=== PATIENT | female | born 1990 | race Caucasian/White ===

== ENCOUNTER 2020-08-03 18:52 | Inpatient (IN) | payer BC ==
[2020-08-03] MEDS ORDERED: Lidocaine 1% 50 ML MDV INJECT PRN (19:58)
[2020-08-03] MEDS ORDERED: Misoprostol 200 MCG Tab PO PRN (19:58)
[2020-08-03] MEDS ORDERED: Ondansetron 4 MG/2 ML SDV IVPUSH PRN (19:58)
[2020-08-03] MEDS ORDERED: Butorphanol 1 MG/ML SDV IVPUSH PRN (19:58)
[2020-08-03] MEDS ORDERED: Carboprost Tromethamine 250 MCG/1 ML Amp IM PRN (19:58)
[2020-08-03] MEDS ORDERED: Nalbuphine 10 MG/1 ML Vial IVPUSH PRN (19:58)
[2020-08-03] MEDS ORDERED: Sodium Chloride 0.9% 10 ML Syringe FLUSH PRN (19:58)
[2020-08-03] MEDS ORDERED: Tranexamic Acid 1,000 MG in Sodium Chloride 0.9% 100 ML IV PRN (19:58)
[2020-08-03] MEDS ORDERED: Sodium Chloride 0.9% 2.5 ML Syringe FLUSH PRN (19:58)
[2020-08-03] MEDS ORDERED: Water For Irrigation,Sterile 1,000 ML Container IRR PRN (19:58)
[2020-08-03] MEDS ORDERED: Sodium Chloride 0.9% 10 ML SDV IV PRN (19:58)
[2020-08-03] MEDS ORDERED: Methylergonovine 0.2 MG/1 ML Amp IM PRN (19:58)
[2020-08-03] MEDS ORDERED: Oxytocin/0.9 % Sodium Chloride 30 UNIT/500 ML BAG IV SCH ×2 (20:00→20:30)
[2020-08-03] MEDS ORDERED: Terbutaline 1 MG/ML SDV SUBCUT PRN (20:16)
--- NOTE | 2020-08-03 20:43 | PCM.LDHP ---
L&D History of Present Illness - General Date of Service: 08/03/20 Admit Problem/Dx: Patient Status Order with Admit Dx/Problem 08/03/20 19:58 Patient Status [ADT] Routine Admission Diagnosis/Problem Admission Diagnosis/Problem Source of Information: Patient History Limitations: Reports: No Limitations - History of Present Illness Introduction:: 30 year old G1 female at 40w0d (EDC 08/03/2020 by LMP c/w 1st trimester US) presents for IOL due to maternal obesity and lives remote from facility. complicated by maternal obesity. Failed 1hr DMS, however, passed 3hr gTT. Reports good movement today. Denies leaking fluid, vaginal bleeding or contractions. Estimated weight 4090 grams by ultrasound on 07/26/2020. - Related Data Allergies/Adverse Reactions: Allergies Allergy/AdvReac Type Severity Reaction Status Date / Time promethazine [From Phenergan] Allergy Muscle Verified 08/03/20 20:31 Weakness H&P Review of Systems - Review of Systems: Review Of Systems: See Below General: Reports: No Symptoms HEENT: Reports: No Symptoms Pulmonary: Reports: No Symptoms Cardiovascular: Reports: No Symptoms Gastrointestinal: Reports: No Symptoms Genitourinary: Reports: No Symptoms Musculoskeletal: Reports: No Symptoms Skin: Reports: No Symptoms Psychiatric: Reports: No Symptoms Neurological: Reports: No Symptoms Hematologic/Lymphatic: Reports: No Symptoms Immunologic: Reports: No Symptoms L&D Exam - Exam Exam: See Below - OB Specific Contraction Frequency (min): q6-8 minutes Contraction Intensity: Mild to Moderate Movement: Active Heart Tones: Present Heart Tones per Min: 130 (accelerations noted) Heart Rate (FHR) Variability: Moderate (6-25 bmp) Presentation: Vertex Estimated Weight: 4090 grams by ultrasound on 07/26/2020 - Espana Score Espana Score Cervix Position: Posterior Espana Score Consistency: Firm Espana Score Effacement: 31-50% Espana Score Dilation: 1-2 cm Espana Score Infant's Station: -3 Espana Score Total: 2 - Exam General: Alert Lungs: Normal Respiratory Effort Cardiovascular: Regular Rate GI/Abdominal Exam: Soft, Non-Tender Back Exam: Normal Inspection, Full Range of Motion Extremities: Normal Inspection, Normal Range of Motion, Non-Tender, Pedal Edema (Trace) Skin: Warm, Dry, Intact Psychiatric: Normal Mood Problem List Initiated/Reviewed/Updated: Yes Orders Last 24hrs: Active Orders 24 hr Category Date Time Status Patient Status [ADT] Routine ADT 08/03/20 19:58 Active Bedrest Bathroom Privileges [RC] ASDIRECTED Care 08/03/20 20:17 Active Communication Order [RC] ASDIRECTED Care 08/03/20 20:17 Active Communication Order [RC] ASDIRECTED Care 08/03/20 20:17 Active Communication Order [RC] ASDIRECTED Care 08/03/20 20:17 Active Heart Tones [RC] CONTINUOUS Care 08/03/20 19:58 Active Non Stress Test [RC] PER UNIT ROUTINE Care 08/03/20 19:58 Active May Shower [RC] ASDIRECTED Care 08/03/20 19:58 Active Notify Provider [RC] PRN Care 08/03/20 19:58 Active Notify Provider [RC] PRN Care 08/03/20 20:17 Active Notify Provider [RC] PRN Care 08/03/20 20:17 Active Notify Provider [RC] STAT Care 08/03/20 20:17 Active Oxygen Therapy [RC] ASDIRECTED Care 08/03/20 20:17 Active Up ad Sandi [RC] ASDIRECTED Care 08/03/20 19:58 Active Vaginal Exam [RC] PRN Care 08/03/20 19:58 Active Vaginal Exam [RC] PRN Care 08/03/20 20:17 Active Vital Signs [RC] PER UNIT ROUTINE Care 08/03/20 19:58 Active Vital Signs [RC] PER UNIT ROUTINE Care 08/03/20 20:17 Active Clear Liquid Diet [DIET] Diet 08/03/20 Dinner Active CBC W/O DIFF,HEMOGRAM [HEME] Routine Lab 08/03/20 19:58 Ordered CORONAVIRUS COVID-19 JACK [MOLEC] Routine Lab 08/03/20 19:55 Received RPR (SYPHILIS SERO) W/ RFLX [REF] Routine Lab 08/03/20 19:58 Ordered TYPE AND SCREEN [BBK] Routine Lab 08/03/20 19:58 Ordered Ampicillin 2 gm Med 08/03/20 19:58 Ordered Sodium Chloride 0.9% [Normal Saline] 100 ml IV ONETIME Butorphanol [Stadol] Med 08/03/20 19:58 Ordered 1 mg IVPUSH Q1H PRN Carboprost Tromethamine [Hemabate DS] Med 08/03/20 19:58 Ordered 250 mcg IM ASDIRECTED PRN Lactated Ringers [Ringers, Lactated] 1,000 ml Med 08/03/20 20:00 Ordered IV ASDIRECTED Lidocaine 1% [Xylocaine 1%] Med 08/03/20 19:58 Ordered 50 ml INJECT ONETIME PRN Methylergonovine [Methergine] Med 08/03/20 19:58 Ordered 0.2 mg IM ASDIRECTED PRN Nalbuphine [Nubain] Med 08/03/20 19:58 Ordered 10 mg IVPUSH Q1H PRN Ondansetron [Zofran] Med 08/03/20 19:58 Ordered 4 mg IVPUSH Q6H PRN Oxytocin/0.9 % Sodium Chloride [Oxytocin 30 Unit/500 ML Med 08/03/20 20:00 Ordered -NS] 30 unit in 500 ml IV TITRATE Oxytocin/0.9 % Sodium Chloride [Oxytocin 30 Unit/500 ML Med 08/03/20 20:30 Ord ered -NS] 30 unit in 500 ml IV TITRATE Sodium Chloride 0.9% [Normal Saline] Med 08/03/20 19:58 Ordered 10 ml IV ASDIRECTED PRN Sodium Chloride 0.9% [Saline Flush] Med 08/03/20 19:58 Ordered 10 ml FLUSH ASDIRECTED PRN Sodium Chloride 0.9% [Saline Flush] Med 08/03/20 19:58 Ordered 2.5 ml FLUSH ASDIRECTED PRN Terbutaline [Brethine] Med 08/03/20 20:16 Ordered 0.25 mg SUBCUT ASDIRECTED PRN Tranexamic Acid [Cyklokapron] 1,000 mg Med 08/03/20 19:58 Ordered Sodium Chloride 0.9% [Normal Saline] 100 ml IV ONETIME Water For Irrigation,Sterile [Sterile Water for Med 08/03/20 19:58 Ordered Irrigation] 1,000 ml IRR ASDIRECTED PRN miSOPROStoL [Cytotec] Med 08/03/20 19:58 Ordered 200 mcg PO ONETIME PRN miSOPROStoL [Cytotec] Med 08/03/20 20:16 Ordered 25 mcg VAG Q4H PRN Scalp Electrode [WOMSER] Per Unit Routine Oth 08/03/20 19:58 Ordered Medication Administration Instruction [OM.PC] Q3H Oth 08/03/20 20:30 Ordered Peripheral IV Insertion Adult [OM.PC] Routine Oth 08/03/20 19:58 Ordered Resuscitation Status Routine Resus Stat 08/03/20 19:58 Ordered Medication Orders Butorphanol Tartrate (Butorphanol 1 Mg/Ml Sdv) 1 mg IVPUSH Q1H PRN PRN Reason: Pain Carboprost Tromethamine (Carboprost Tromethamine 250 Mcg/1 Ml Amp) 250 mcg IM ASDIRECTED PRN PRN Reason: Post Hemorrhage Oxytocin/Sodium Chloride (Oxytocin 30 Unit/500 Ml-Ns) 30 unit in 500 mls @ 999 mls/hr IV TITRATE MARLIN Tranexamic Acid 1,000 mg/ (Sodium Chloride) 110 mls @ 660 mls/hr IV ONETIME PRN PRN Reason: Bleeding Ampicillin Sodium 2 gm/ Sodium (Chloride) 100 mls @ 200 mls/hr IV ONETIME ONE Stop: 08/03/20 20:27 Lactated Ringer's (Ringers, Lactated) 1,000 mls @ 150 mls/hr IV ASDIRECTED MARLIN Oxytocin/Sodium Chloride (Oxytocin 30 Unit/500 Ml-Ns) 30 unit in 500 mls @ 2 mls/hr IV TITRATE MARLIN; Protocol Lidocaine HCl (Lidocaine 1% 50 Ml Mdv) 50 ml INJECT ONETIME PRN PRN Reason: Laceration repair Methylergonovine Maleate (Methylergonovine 0.2 Mg/1 Ml Amp) 0.2 mg IM ASDIRECTED PRN PRN Reason: Post Hemorrhage Misoprostol (Misoprostol 200 Mcg Tab) 200 mcg PO ONETIME PRN PRN Reason: Post Hemorrhage Misoprostol (Misoprostol 25 Mcg (1/4 Of 100 Mcg) Tab) 25 mcg VAG Q4H PRN PRN Reason: Cervical Ripening Nalbuphine HCl (Nalbuphine 10 Mg/1 Ml Vial) 10 mg IVPUSH Q1H PRN PRN Reason: Pain (severe 7-10) Ondansetron HCl (Ondansetron 4 Mg/2 Ml Sdv) 4 mg IVPUSH Q6H PRN PRN Reason: Nausea/Vomiting Sodium Chloride (Sodium Chloride 0.9% 10 Ml Syringe) 10 ml FLUSH ASDIRECTED PRN PRN Reason: Keep Vein Open Sodium Chloride (Sodium Chloride 0.9% 2.5 Ml Syringe) 2.5 ml FLUSH ASDIRECTED PRN PRN Reason: Keep Vein Open Sodium Chloride (Sodium Chloride 0.9% 10 Ml Sdv) 10 ml IV ASDIRECTED PRN PRN Reason: IV Use Sterile Water (Water For Irrigation,Sterile 1,000 Ml Container) 1,000 ml IRR ASDIRECTED PRN PRN Reason: delivery Terbutaline Sulfate (Terbutaline 1 Mg/Ml Sdv) 0.25 mg SUBCUT ASDIRECTED PRN PRN Reason: Tacysystole Assessment/Plan Comment:: 30 year old G1 female at 40w0d (EDC 08/03/2020 by LMP c/w 1st trimester US) for IOL due to maternal obesity and lives remote from facility * Rh positive, rubella immune * GBS positive, IV Ampicillin during labor * COVID-19 test pending * Reviewed risks of Cyototec/Pitocin induction including Cytotec as category X medication in , tachysystole with distress and need for section. Questions elicited and answered. * Will place vaginal Cytotec pending CVE and proceed with Pitocin after cervical ripening * Epidural PRN pain management
[2020-08-03] MEDS ORDERED: Ampicillin 2 GM in Sodium Chloride 0.9% 100 ML IV ONE (21:00)
[2020-08-03] MEDS: Misoprostol 25 MCG (1/4 of 100 MCG) Tab VAG PRN (21:10)
[2020-08-03] MEDS: Lactated Ringers 1,000 ML IV SCH (21:28)
[2020-08-04] MEDS: Misoprostol 25 MCG (1/4 of 100 MCG) Tab VAG PRN ×2 (01:07→05:20)
[2020-08-04] MEDS: Ampicillin 1 GM in Sodium Chloride 0.9% 50 ML IV SCH ×6 (01:26→21:22)
[2020-08-04] MEDS: Lactated Ringers 1,000 ML IV SCH ×4 (13:57→23:01)
[2020-08-04] MEDS ORDERED: Ropivacaine HCl/PF 100 ML ONE (16:17)
[2020-08-04] MEDS ORDERED: fentaNYL 100 MCG/2 ML SDV ONE (16:17)
--- NOTE | 2020-08-04 16:34 | PCM.PREANE ---
Preanesthetic Assessment - Anesthesia/Transfusion/Family Hx Anesthesia History: Prior Anesthesia Without Reaction Family History of Anesthesia Reaction: No Transfusion History: No Prior Transfusion(s) Type of Transfusion Reactions: Reports: Unknown - Physical Assessment NPO Status Date: 08/04/20 NPO Status Time: 10:00 Height: 1.7 m Weight: 108.862 kg ASA Class: 2 - Lab Values: Laboratory Last Values WBC 11.33 K/uL (4.0-11.0) H 08/03/20 20: RBC 3.60 M/uL (4.30-5.90) L 08/03/20 20: Hgb 12.0 g/dL (12.0-16.0) 08/03/20 20: Hct 34.7 % (36.0-46.0) L 08/03/20 20: MCV 96.4 fL (80.0-98.0) 08/03/20 20: MCH 33.3 pg (27.0-32.0) H 08/03/20 20: MCHC 34.6 g/dL (31.0-37.0) 08/03/20 20: RDW Std Deviation 43.2 fl (28.0-62.0) 08/03/20 20: RDW Coeff of Coy 12 % (11.0-15.0) 08/03/20 20: Plt Count 225 K/uL (150-400) 08/03/20 20: MPV 10.50 fL (7.40-12.00) 08/03/20 20: Nucleated RBC % 0.0 /100WBC 08/03/20 20: Nucleated RBCs # 0 K/uL 08/03/20 20:27 SARS-CoV-2 RNA (JACK) NEGATIVE (NEGATIVE) 08/03/20 19:55 Blood Type A POSITIVE 08/03/20 20: Antibody Screen NEGATIVE 08/03/20 20:27 - Allergies Allergies/Adverse Reactions: Allergies Allergy/AdvReac Type Severity Reaction Status Date / Time metoclopramide [From Reglan] Allergy Weakness Verified 08/03/20 20:37 prochlorperazine Allergy Muscle Verified 08/03/20 20:37 [From Compazine] Weakness promethazine [From Phenergan] Allergy Muscle Verified 08/03/20 20:31 Weakness - Acknowledgements Anesthesia Type Planned: Epidural Pt an Appropriate Candidate for the Planned Anesthesia: Yes Alternatives and Risks of Anesthesia Discussed w Pt/Guardian: Yes Pt/Guardian Understands and Agrees with Anesthesia Plan: Yes PreAnesthesia Questionnaire HEENT History: Reports: None Cardiovascular History: Reports: None Gastrointestinal History: Reports: None Genitourinary History: Reports: None HOUSEHOLD ASSISTANT History: Reports: Musculoskeletal History: Reports: None Neurological History: Reports: None Psychiatric History: Reports: None Endocrine/Metabolic History: Reports: None Hematologic History: Reports: None Immunologic History: Reports: None Oncologic (Cancer) History: Reports: None Dermatologic History: Reports: None - Infectious Disease History Infectious Disease History: Reports: Chicken Pox - Past Surgical History Head Surgeries/Procedures: Reports: None HEENT Surgical History: Reports: None Cardiovascular Surgical History: Reports: None Respiratory Surgical History: Reports: None GI Surgical History: Reports: None Female Surgical History: Reports: None Endocrine Surgical History: Reports: None Neurological Surgical History: Reports: None Musculoskeletal Surgical History: Reports: None Oncologic Surgical History: Reports: None Dermatological Surgical History: Reports: None - SUBSTANCE USE Tobacco Use Status *Q: Never Tobacco User Second Hand Smoke Exposure: No Recreational Drug Use History: No - CURRENT (IN HOUSE) MEDS Current Meds: Current Medications Butorphanol Tartrate (Butorphanol 1 Mg/Ml Sdv) 1 mg IVPUSH Q1H PRN PRN Reason: Pain Carboprost Tromethamine (Carboprost Tromethamine 250 Mcg/1 Ml Amp) 250 mcg IM ASDIRECTED PRN PRN Reason: Post Hemorrhage Oxytocin/Sodium Chloride (Oxytocin 30 Unit/500 Ml-Ns) 30 unit in 500 mls @ 999 mls/hr IV TITRATE MARLIN Tranexamic Acid 1,000 mg/ (Sodium Chloride) 110 mls @ 660 mls/hr IV ONETIME PRN PRN Reason: Bleeding Lactated Ringer's (Ringers, Lactated) 1,000 mls @ 150 mls/hr IV ASDIRECTED MARLIN Last Admin: 08/04/20 13:57 Dose: 150 mls/hr Documented by: Oxytocin/Sodium Chloride (Oxytocin 30 Unit/500 Ml-Ns) 30 unit in 500 mls @ 2 mls/hr IV TITRATE MARLIN; Protocol Last Titration: 08/04/20 13:58 Dose: 12 munits/min, 12 mls/hr Documented by: Ampicillin Sodium 1 gm/ Sodium (Chloride) 50 mls @ 100 mls/hr IV Q4H MARLIN Last Admin: 08/04/20 13:30 Dose: 100 mls/hr Documented by: Lidocaine HCl (Lidocaine 1% 50 Ml Mdv) 50 ml INJECT ONETIME PRN PRN Reason: Laceration repair Methylergonovine Maleate (Methylergonovine 0.2 Mg/1 Ml Amp) 0.2 mg IM ASDIRECTED PRN PRN Reason: Post Hemorrhage Misoprostol (Misoprostol 200 Mcg Tab) 200 mcg PO ONETIME PRN PRN Reason: Post Hemorrhage Misoprostol (Misoprostol 25 Mcg (1/4 Of 100 Mcg) Tab) 25 mcg VAG Q4H PRN PRN Reason: Cervical Ripening Last Admin: 08/04/20 05:20 Dose: 25 mcg Documented by: Nalbuphine HCl (Nalbuphine 10 Mg/1 Ml Vial) 10 mg IVPUSH Q1H PRN PRN Reason: Pain (severe 7-10) Ondansetron HCl (Ondansetron 4 Mg/2 Ml Sdv) 4 mg IVPUSH Q6H PRN PRN Reason: Nausea/Vomiting Sodium Chloride (Sodium Chloride 0.9% 10 Ml Syringe) 10 ml FLUSH ASDIRECTED PRN PRN Reason: Keep Vein Open Sodium Chloride (Sodium Chloride 0.9% 2.5 Ml Syringe) 2.5 ml FLUSH ASDIRECTED PRN PRN Reason: Keep Vein Open Sodium Chloride (Sodium Chloride 0.9% 10 Ml Sdv) 10 ml IV ASDIRECTED PRN PRN Reason: IV Use Sterile Water (Water For Irrigation,Sterile 1,000 Ml Container) 1,000 ml IRR ASDIRECTED PRN PRN Reason: delivery Terbutaline Sulfate (Terbutaline 1 Mg/Ml Sdv) 0.25 mg SUBCUT ASDIRECTED PRN PRN Reason: Tacysystole Discontinued Medications Fentanyl (Fentanyl 100 Mcg/2 Ml Sdv) Confirm Administered Dose 100 mcg .ROUTE .STK-MED ONE Stop: 08/04/20 16:18 Ampicillin Sodium 2 gm/ Sodium (Chloride) 100 mls @ 200 mls/hr IV ONETIME ONE Stop: 08/03/20 21:29 Last Admin: 08/03/20 21:27 Dose: 200 mls/hr Documented by: Ampicillin Sodium 1 gm/ Sodium (Chloride) 50 mls @ 100 mls/hr IV Q4H MARLIN Last Admin: 08/04/20 05:20 Dose: 100 mls/hr Documented by: Ropivacaine (Naropin 0.2%) Confirm Administered Dose 100 mls @ as directed .ROUTE .[facility]-MED ONE Stop: 08/04/20 16:18
--- NOTE | 2020-08-04 16:37 | PCM.PRNOTE ---
- Free Text/Narrative Note: Anes Note Patient requests epidural for L&D. Sitting position. Level L3-L4 midline appraoch. Sterile technique. Chloraprep scrub to lumbar area. Sterile fenestrated drape applied. Epidural space easily achieved single attempt with ease using RADHA technique. RADHA at 3 cm. Cath threaded 5 cm wtih ease. Cath secured at skin using sterile clear adhesive dressing. Test 1625 3 cc 1.5% lido with epi negative 1628 Load 10 cc 0.2% ropivicaine with 1 mcg cc fentanyl in slow divided doses. 1634 Pump started wityh 90 cc same solution. Rate is 8 cc hr with 6 cc q 20 min prn bolus. Kari well. Time with patient [id number] Gucci Rodriguez CRNA
[2020-08-05] MEDS ORDERED: fentaNYL 100 MCG/2 ML SDV ONE ×4 (01:14→07:08)
[2020-08-05] MEDS ORDERED: Ropivacaine HCl/PF 100 ML ONE (01:14)
--- NOTE | 2020-08-05 01:27 | PCM.PRNOTE ---
- Free Text/Narrative Note: Anes Note Epidural infusion is complete. A new bag of 100 cc 0.2%ropiviciane with 1 mcg cc fentanyl was placed. A bolus of 100 mcg fentanyl plus 10 cc pump solution was injected slowly and cautiously. Time [facility] patient [id number] Gucci Rodriguez CRNA
[2020-08-05] MEDS: Ampicillin 1 GM in Sodium Chloride 0.9% 50 ML IV SCH ×3 (01:36→09:46)
[2020-08-05] MEDS ORDERED: Citric Acid/Sodium Citrate Solution 30 ML Cup PO ONE (06:19)
[2020-08-05] MEDS ORDERED: Sodium Chloride 0.9% 2.5 ML Syringe FLUSH PRN (06:19)
[2020-08-05] MEDS ORDERED: Sodium Chloride 0.9% 10 ML SDV IV PRN (06:19)
[2020-08-05] MEDS ORDERED: Sodium Chloride 0.9% 10 ML Syringe FLUSH PRN (06:19)
[2020-08-05] MEDS ORDERED: ceFAZolin 2 GM in Premix Bag 1 BAG IV ONE (06:19)
[2020-08-05] MEDS ORDERED: Lidocaine 2% with EPINEPHrine 1:200,000 20 ML SDV ONE (06:26)
[2020-08-05] MEDS ORDERED: Oxytocin/0.9 % Sodium Chloride 30 UNIT/500 ML BAG IV SCH (06:30)
[2020-08-05] MEDS ORDERED: Lactated Ringers 1,000 ML IV SCH (06:30)
[2020-08-05] MEDS ORDERED: Oxytocin 10 Units/1 ML SDV ONE (06:35)
[2020-08-05] MEDS ORDERED: Phenylephrine 1% 10 MG/ML SDV ONE (06:35)
[2020-08-05] MEDS ORDERED: Ondansetron 4 MG/2 ML SDV ONE (06:35)
[2020-08-05] MEDS ORDERED: Ketorolac 30 MG/ML SDV ONE (06:35)
[2020-08-05] MEDS ORDERED: Morphine PF 10 MG/10 ML SDV ONE (06:37)
[2020-08-05] MEDS ORDERED: ceFAZolin 1 GM Vial ONE (06:38)
[2020-08-05] MEDS ORDERED: Sodium Chloride 0.9% 20 ML ONE (06:38)
[2020-08-05] MEDS ORDERED: Bupivacaine 0.5% 30 ML SDV ONE (06:59)
[2020-08-05] MEDS ORDERED: Propofol 200 MG/20 ML SDV ONE (07:03)
[2020-08-05] MEDS ORDERED: Acetaminophen/oxyCODONE 325-5 MG Tab PO PRN (07:16)
[2020-08-05] MEDS ORDERED: Nalbuphine 10 MG/1 ML Vial IVPUSH PRN (07:16)
[2020-08-05] MEDS ORDERED: Naloxone 0.4 MG/ML Syringe IVPUSH PRN (07:16)
[2020-08-05] MEDS ORDERED: fentaNYL 100 MCG/2 ML SDV IVPUSH PRN (07:16)
[2020-08-05] MEDS ORDERED: Ondansetron 4 MG/2 ML SDV IVPUSH PRN ×2 (07:16→08:17)
[2020-08-05] MEDS ORDERED: diphenhydrAMINE 50 MG/ML SDV IVPUSH PRN ×2 (07:16→08:17)
[2020-08-05] MEDS ORDERED: Misoprostol 200 MCG Tab ONE (07:24)
[2020-08-05] MEDS ORDERED: Midazolam 1 MG/ML 2 ML SDV ONE (07:41)
[2020-08-05] MEDS ORDERED: Methylergonovine 0.2 MG/1 ML Amp IM PRN (08:17)
[2020-08-05] MEDS ORDERED: Tranexamic Acid 1,000 MG in Sodium Chloride 0.9% 100 ML IV PRN (08:17)
[2020-08-05] MEDS ORDERED: Bisacodyl 10 MG Supp RECTAL PRN (08:17)
[2020-08-05] MEDS ORDERED: Lanolin 100% Cream 7 GM Tube TOP PRN (08:17)
[2020-08-05] MEDS ORDERED: Oxytocin 10 Units/1 ML SDV IM PRN (08:17)
[2020-08-05] MEDS ORDERED: Misoprostol 200 MCG Tab RECTAL PRN (08:17)
--- NOTE | 2020-08-05 08:17 | PCM.OPNOTE ---
<Carole Acevedo - Last Filed: 08/05/20 08:12> - General Post-Op/Procedure Note Date of Surgery/Procedure: 08/05/20 Operative Procedure(s): low transverse section Pre Op Diagnosis: 40w0d intrauterine , failure to progress Post-Op Diagnosis: same as pre-op Anesthesia Technique: Epidural Primary Surgeon: Marleny Trevino Anesthesia Provider: Elie Tillman Construction Administrator: Carole Acevedo Pathology: none Fluid Replacement, Intraop: 1,200 Output, Urine Amount: 200 EBL in mLs: 800 Condition: Stable Free Text/Narrative:: Intake & Output 08/04/20 08/05/20 08/05/20 22:59 06:59 14:59 Intake Total 212 Balance 212 <Marleny Trevino - Last Filed: 08/06/20 10:58> - General Post-Op/Procedure Note Findings: Normal appearing male in cephalic presentation, occiput posterior. Nuchal chord x1, loose. Weight 9lbs 3oz. APGARs 8/9. Clear amniotic fluid. Normal appearing uterus, fallopian tubes and ovaries. Pre Op Diagnosis: correction: 1. 40w2d intrauterine gestation. 2. Failure to descend in second stage. 3. GBS positive. 4. Maternal obesity Post-Op Diagnosis: Correction: 1. 40w2d intrauterine gestation. 2. Failure to descend in second stage. 3. GBS positive. 4. Maternal obesity. 5. Uterine atony Complications: Uterine atony Free Text/Narrative:: Intake & Output 08/05/20 08/06/20 08/06/20 22:59 06:59 14:59 Intake Total 2401 Output Total 2450 Balance -49 Dictation #[id number]
[2020-08-05] MEDS ORDERED: Oxytocin/Lactated Ringers 30 UNIT/500 ML BAG IV SCH (08:30)
--- NOTE | 2020-08-05 08:54 | PCM.POSTAN ---
POST ANESTHESIA ASSESSMENT - MENTAL STATUS Mental Status: Alert - RESPIRATORY Respiratory Status: Respiratory Rate WNL - CARDIOVASCULAR CV Status: Pulse Rate WNL - GASTROINTESTINAL GI Status: No Symptoms - POST OP HYDRATION Hydration Status: Adequate & Stable
[2020-08-05] MEDS: Ketorolac 30 MG/ML SDV IVPUSH SCH ×3 (09:39→20:49)
[2020-08-05] MEDS: Docusate Sodium 100 MG Cap PO SCH ×2 (10:11→20:51)
[2020-08-05] MEDS: Lactated Ringers 1,000 ML IV SCH ×2 (10:33→19:33)
--- NOTE | 2020-08-05 17:32 | PCM.SN.2 ---
- Free Text/Narrative Note: Patient doing well. Has ambulated in room without dizziness. Vital signs normal with good urine output. Check hemoglobin in the morning. Continue to monitor.
[2020-08-06] MEDS: Ketorolac 30 MG/ML SDV IVPUSH SCH ×2 (02:38→08:44)
--- NOTE | 2020-08-06 07:26 | PCM.PNPP ---
<Carole Acevedo L - Last Filed: 08/06/20 11:44> - General Info Date of Service: 08/06/20 Functional Status: Reports: Pain Controlled, Tolerating Diet, Ambulating, Other - Review of Systems General: Reports: No Symptoms Pulmonary: Reports: No Symptoms Cardiovascular: Reports: No Symptoms Gastrointestinal: Reports: No Symptoms Genitourinary: Reports: No Symptoms Musculoskeletal: Reports: No Symptoms - General Info Date of Service: 08/06/20 - Patient Data Vital Signs - Most Recent: Last Vital Signs Temp 36.2 C 08/06/20 05:00 Pulse 83 08/06/20 06:00 Resp 17 08/06/20 06:00 BP 110/52 L 08/06/20 05:00 Pulse Ox 93 L 08/05/20 23:00 Weight - Most Recent: 240 lb I&O - Last 24 Hours: Intake & Output 08/05/20 08/06/20 08/06/20 22:59 06:59 14:59 Intake Total 2401 Output Total 2450 Balance -49 Lab Results - Last 24 Hours: Laboratory Results - last 24 hr 08/05/20 08/06/20 Range/Units 08:43 05:18 WBC 22.43 H (4.0-11.0) K/uL RBC 3.30 L (4.30-5.90) M/uL Hgb 10.9 L 7.6 L (12.0-16.0) g/dL Hct 32.2 L 22.3 L (36.0-46.0) % MCV 97.6 (80.0-98.0) fL MCH 33.0 H (27.0-32.0) pg MCHC 33.9 (31.0-37.0) g/dL RDW Std Deviation 43.7 (28.0-62.0) fl RDW Coeff of Coy 12 (11.0-15.0) % Plt Count 212 (150-400) K/uL MPV 10.50 (7.40-12.00) fL Nucleated RBC % 0.0 /100WBC Nucleated RBCs # 0 K/uL Med Orders - Current: Current Medications Bisacodyl (Bisacodyl 10 Mg Supp) 10 mg RECTAL ONETIME PRN PRN Reason: Constipation Butorphanol Tartrate (Butorphanol 1 Mg/Ml Sdv) 1 mg IVPUSH Q1H PRN PRN Reason: Pain Carboprost Tromethamine (Carboprost Tromethamine 250 Mcg/1 Ml Amp) 250 mcg IM ASDIRECTED PRN PRN Reason: Post Hemorrhage Diphenhydramine HCl (Diphenhydramine 50 Mg/Ml Sdv) 25 mg IVPUSH Q6H PRN PRN Reason: Itching or Nausea Docusate Sodium (Docusate Sodium 100 Mg Cap) 100 mg PO BID [facility] Last Admin: 08/05/20 20:51 Dose: 100 mg Documented by: Emollient Ointment (Lanolin 100% Cream 7 Gm Tube) 0 gm TOP ASDIRECTED PRN PRN Reason: Sore Nipples Fentanyl (Fentanyl 100 Mcg/2 Ml Sdv) 50 mcg IVPUSH Q1H PRN PRN Reason: Pain (severe 7-10) Oxytocin/Sodium Chloride (Oxytocin 30 Unit/500 Ml-Ns) 30 unit in 500 mls @ 999 mls/hr IV TITRATE [facility] Tranexamic Acid 1,000 mg/ (Sodium Chloride) 110 mls @ 660 mls/hr IV ONETIME PRN PRN Reason: Bleeding Lactated Ringer's (Ringers, Lactated) 1,000 mls @ 150 mls/hr IV ASDIRECTED [facility] Last Admin: 08/04/20 23:01 Dose: 150 mls/hr Documented by: Oxytocin/Sodium Chloride (Oxytocin 30 Unit/500 Ml-Ns) 30 unit in 500 mls @ 2 mls/hr IV TITRATE [facility]; Protocol Last Titration: 08/05/20 05:59 Dose: 0 munits/min, 0 mls/hr Documented by: Lactated Ringer's (Ringers, Lactated) 1,000 mls @ 500 mls/hr IV [facility] Oxytocin/Sodium Chloride (Oxytocin 30 Unit/500 Ml-Ns) 30 unit in 500 mls @ 250 mls/hr IV TITRATE [facility] Lactated Ringer's (Ringers, Lactated) 1,000 mls @ 125 mls/hr IV ASDIRECTED [facility] Last Admin: 08/05/20 19:33 Dose: 125 mls/hr Documented by: Oxytocin/Lactated Ringer's (Pitocin In Lr 30 Units/500 Ml) 30 unit in 500 mls @ 999 mls/hr IV TITRATE [facility]; Protocol Tranexamic Acid 1,000 mg/ (Sodium Chloride) 110 mls @ 660 mls/hr IV ONETIME PRN PRN Reason: Bleeding Ibuprofen (Ibuprofen 800 Mg Tab) 800 mg PO Q8H PRN PRN Reason: mild pain or fever Ketorolac Tromethamine (Ketorolac 30 Mg/Ml Sdv) 30 mg IVPUSH Q6H [facility] Stop: 08/06/20 08:31 Last Admin: 08/06/20 02:38 Dose: 30 mg Documented by: Lidocaine HCl (Lidocaine 1% 50 Ml Mdv) 50 ml INJECT ONETIME PRN PRN Reason: Laceration repair Methylergonovine Maleate (Methylergonovine 0.2 Mg/1 Ml Amp) 0.2 mg IM ASDIRECTED PRN PRN Reason: Post Hemorrhage Methylergonovine Maleate (Methylergonovine 0.2 Mg/1 Ml Amp) 0.2 mg IM ONETIME PRN PRN Reason: Excessive Vaginal Bleeding Misoprostol (Misoprostol 200 Mcg Tab) 200 mcg PO ONETIME PRN PRN Reason: Post Hemorrhage Misoprostol (Misoprostol 25 Mcg (1/4 Of 100 Mcg) Tab) 25 mcg VAG Q4H PRN PRN Reason: Cervical Ripening Last Admin: 08/04/20 05:20 Dose: 25 mcg Documented by: Misoprostol (Misoprostol 200 Mcg Tab) 1,000 mcg RECTAL ONETIME PRN PRN Reason: excessive bleeding Nalbuphine HCl (Nalbuphine 10 Mg/1 Ml Vial) 10 mg IVPUSH Q1H PRN PRN Reason: Pain (severe 7-10) Nalbuphine HCl (Nalbuphine 10 Mg/1 Ml Vial) 5 mg IVPUSH ASDIRECTED PRN PRN Reason: Itching Last Admin: 08/05/20 19:42 Dose: 5 mg Documented by: Ondansetron HCl (Ondansetron 4 Mg/2 Ml Sdv) 4 mg IVPUSH Q6H PRN PRN Reason: Nausea/Vomiting Ondansetron HCl (Ondansetron 4 Mg/2 Ml Sdv) 4 mg IVPUSH Q6H PRN PRN Reason: Nausea Ondansetron HCl (Ondansetron 4 Mg/2 Ml Sdv) 4 mg IVPUSH Q4H PRN PRN Reason: Nausea/Vomiting Oxycodone/Acetaminophen (Acetaminophen/Oxycodone 325-5 Mg Tab) 2 tab PO Q6H PRN PRN Reason: Pain (moderate 4-6) Oxycodone/Acetaminophen (Acetaminophen/Oxycodone 325-5 Mg Tab) 1 tab PO Q4H PRN PRN Reason: Pain (moderate 4-6) Oxycodone/Acetaminophen (Acetaminophen/Oxycodone 325-5 Mg Tab) 2 tab PO Q4H PRN PRN Reason: Pain (moderate 4-6) Oxytocin (Oxytocin 10 Units/1 Ml Sdv) 10 unit IM ASDIRECTED PRN PRN Reason: Excessive Vaginal Bleeding Sodium Chloride (Sodium Chloride 0.9% 10 Ml Syringe) 10 ml FLUSH ASDIRECTED PRN PRN Reason: Keep Vein Open Sodium Chloride (Sodium Chloride 0.9% 2.5 Ml Syringe) 2.5 ml FLUSH ASDIRECTED PRN PRN Reason: Keep Vein Open Sodium Chloride (Sodium Chloride 0.9% 10 Ml Sdv) 10 ml IV ASDIRECTED PRN PRN Reason: IV Use Sodium Chloride (Sodium Chloride 0.9% 10 Ml Syringe) 10 ml FLUSH ASDIRECTED PRN PRN Reason: Keep Vein Open Sodium Chloride (Sodium Chloride 0.9% 2.5 Ml Syringe) 2.5 ml FLUSH ASDIRECTED PRN PRN Reason: Keep Vein Open Sodium Chloride (Sodium Chloride 0.9% 10 Ml Sdv) 10 ml IV ASDIRECTED PRN PRN Reason: IV Use Sterile Water (Water For Irrigation,Sterile 1,000 Ml Container) 1,000 ml IRR ASDIRECTED PRN PRN Reason: delivery Terbutaline Sulfate (Terbutaline 1 Mg/Ml Sdv) 0.25 mg SUBCUT ASDIRECTED PRN PRN Reason: Tacysystole Discontinued Medications Bupivacaine HCl (Bupivacaine 0.5% 30 Ml Sdv) Confirm Administered Dose 30 ml .ROUTE .STK-MED ONE Stop: 08/05/20 07:00 Last Admin: 08/05/20 09:28 Dose: Not Given Documented by: Cefazolin Sodium (Cefazolin 1 Gm Vial) Confirm Administered Dose 2 gm .ROUTE .STK-MED ONE Stop: 08/05/20 06:39 Citric Acid/Sodium Citrate (Citric Acid/Sodium Citrate Solution 30 Ml Cup) 30 ml PO ONETIME ONE Stop: 08/05/20 06:20 Last Admin: 08/05/20 20:29 Dose: Not Given Documented by: Diphenhydramine HCl (Diphenhydramine 50 Mg/Ml Sdv) 25 mg IVPUSH Q4H PRN PRN Reason: Itching Stop: 08/06/20 07:16 Fentanyl (Fentanyl 100 Mcg/2 Ml Sdv) Confirm Administered Dose 100 mcg .ROUTE .STK-MED ONE Stop: 08/04/20 16:18 Last Admin: 08/05/20 09:26 Dose: Not Given Documented by: Fentanyl (Fentanyl 100 Mcg/2 Ml Sdv) Confirm Administered Dose 100 mcg .ROUTE .STK-MED ONE Stop: 08/05/20 01:15 Last Admin: 08/05/20 09:26 Dose: Not Given Documented by: Fentanyl (Fentanyl 100 Mcg/2 Ml Sdv) Confirm Administered Dose 100 mcg .ROUTE .STK-MED ONE Stop: 08/05/20 01:21 Last Admin: 08/05/20 09:27 Dose: Not Given Documented by: Fentanyl (Fentanyl 100 Mcg/2 Ml Sdv) Confirm Administered Dose 100 mcg .ROUTE .STK-MED ONE Stop: 08/05/20 06:26 Last Admin: 08/05/20 09:27 Dose: Not Given Documented by: Fentanyl (Fentanyl 100 Mcg/2 Ml Sdv) Confirm Administered Dose 100 mcg .ROUTE .STK-MED ONE Stop: 08/05/20 07:09 Ampicillin Sodium 2 gm/ Sodium (Chloride) 100 mls @ 200 mls/hr IV ONETIME ONE Stop: 08/03/20 21:29 Last Admin: 08/03/20 21:27 Dose: 200 mls/hr Documented by: Ampicillin Sodium 1 gm/ Sodium (Chloride) 50 mls @ 100 mls/hr IV Q4H [facility] Last Admin: 08/04/20 05:20 Dose: 100 mls/hr Documented by: Ampicillin Sodium 1 gm/ Sodium (Chloride) 50 mls @ 100 mls/hr IV Q4H [facility] Last Admin: 08/05/20 09:46 Dose: Not Given Documented by: Ropivacaine (Naropin 0.2%) Confirm Administered Dose 100 mls @ as directed .ROUTE .STK-MED ONE Stop: 08/04/20 16:18 Last Admin: 08/05/20 09:26 Dose: Not Given Documented by: Ropivacaine (Naropin 0.2%) Confirm Administered Dose 100 mls @ as directed .ROUTE .ST-MED ONE Stop: 08/05/20 01:15 Last Admin: 08/05/20 09:26 Dose: Not Given Documented by: Cefazolin Sodium/Dextrose 2 gm (/ Premix) 50 mls @ 100 mls/hr IV ONETIME ONE Stop: 08/05/20 06:48 Last Admin: 08/05/20 09:27 Dose: Not Given Documented by: Sodium Chloride (Normal Saline) Confirm Administered Dose 20 mls @ as directed .ROUTE .ST-MED ONE Stop: 08/05/20 06:39 Ketorolac Tromethamine (Ketorolac 30 Mg/Ml Sdv) Confirm Administered Dose 30 mg .ROUTE .ST-MED ONE Stop: 08/05/20 06:36 Lidocaine/Epinephrine (Lidocaine 2% With Epinephrine 1:200,000 20 Ml Sdv) Confirm Administered Dose [address] ONE Stop: 08/05/20 06:27 Last Admin: 08/05/20 20:29 Dose: Not Given Documented by: Midazolam HCl (Midazolam 1 Mg/Ml 2 Ml Sdv) Confirm Administered Dose 2 mg .ROUTE .ST-MED ONE Stop: 08/05/20 07:42 Misoprostol (Misoprostol 200 Mcg Tab) Confirm Administered Dose 400 mcg .ROUTE .ST-MED ONE Stop: 08/05/20 07:25 Last Admin: 08/05/20 09:28 Dose: Not Given Documented by: Morphine Sulfate (Morphine Pf 10 Mg/10 Ml Sdv) Confirm Administered Dose 10 mg .ROUTE .ST-MED ONE Stop: 08/05/20 06:38 Naloxone HCl (Naloxone 0.4 Mg/Ml Syringe) 0.1 mg IVPUSH ONETIME PRN PRN Reason: Respiratory Depression Stop: 08/06/20 07:16 Ondansetron HCl (Ondansetron 4 Mg/2 Ml Sdv) Confirm Administered Dose 4 mg .ROUTE .ST-MED ONE Stop: 08/05/20 06:36 Oxytocin (Oxytocin 10 Units/1 Ml Sdv) Confirm Administered Dose 20 unit .ROUTE .STK-MED ONE Stop: 08/05/20 06:36 Phenylephrine HCl (Phenylephrine 1% 10 Mg/Ml Sdv) Confirm Administered Dose 10 mg .ROUTE .STK-MED ONE Stop: 08/05/20 06:36 Propofol (Propofol 200 Mg/20 Ml Sdv) Confirm Administered Dose 200 mg .ROUTE .STK-MED ONE Stop: 08/05/20 07:04 - Interaction Disposition, : in Room with Family Interaction: Holding Infant Infant Feeding: Breastfed Infant; Nursed Well, Difficulty with Latch-on Support Person: - Recovery Exam Fundal Tone: Firm Fundal Level: 2 Fingerbreadths Below Umbilicus Fundal Placement: Midline Lochia Amount: None Perineum Description: Other (see below) (didn't visualize perineum and asked about lochia, but pt hasn't noticed anything) Episiotomy/Laceration: None Bladder Status: Voiding Urinary Elimination: Other (see below) - Exam General: Alert, Oriented Lungs: Clear to Auscultation, Normal Respiratory Effort Cardiovascular: Regular Rate, Regular Rhythm GI/Abdominal Exam: Normal Bowel Sounds, Tender Extremities: Non-Tender Skin: Warm, Dry, Intact Wound/Incisions: Dressing Dry and Intact Psy/Mental Status: Alert - Problem List Review Problem List Initiated/Reviewed/Updated: Yes - Assessment Assessment:: 30 y/o POD#1 S/P section for failure to progress. She's doing well today, no particular complaints at this time. Barclay is removed and she's voided since then. Flatus present, no bowel movement. Oral intake is appropriate. Ambulating slowly. Pain is controlled. Baby is , but having some difficulty latching on. Will continue to breast feed and supplement with a bottle, if needed. - Plan Plan:: 30 year old G1 female at 40w0d (EDC 08/03/2020 by LMP c/w 1st trimester US) for IOL due to maternal obesity and lives remote from facility * Rh positive, rubella immune * GBS positive, IV Ampicillin during labor * COVID-19 test pending * Reviewed risks of Cyototec/Pitocin induction including Cytotec as category X medication in , tachysystole with distress and need for section. Questions elicited and answered. * Will place vaginal Cytotec pending CVE and proceed with Pitocin after cervical ripening * Epidural PRN pain management <Marleny Trevino - Last Filed: 08/06/20 12:59> - Patient Data Vital Signs - Most Recent: Last Vital Signs Temp 97.5 F 08/06/20 11:57 Pulse 75 08/06/20 11:57 Resp 17 08/06/20 11:57 BP 113/56 L 08/06/20 11:57 Pulse Ox 97 08/06/20 11:57 I&O - Last 24 Hours: Intake & Output 08/05/20 08/06/20 08/06/20 22:59 06:59 14:59 Intake Total 2401 Output Total 2450 600 Balance -49 -600 Lab Results - Last 24 Hours: Laboratory Results - last 24 hr 08/06/20 Range/Units 05:18 Hgb 7.6 L (12.0-16.0) g/dL Hct 22.3 L (36.0-46.0) % Med Orders - Current: Current Medications Bisacodyl (Bisacodyl 10 Mg Supp) 10 mg RECTAL ONETIME PRN PRN Reason: Constipation Butorphanol Tartrate (Butorphanol 1 Mg/Ml Sdv) 1 mg IVPUSH Q1H PRN PRN Reason: Pain Carboprost Tromethamine (Carboprost Tromethamine 250 Mcg/1 Ml Amp) 250 mcg IM ASDIRECTED PRN PRN Reason: Post Hemorrhage Diphenhydramine HCl (Diphenhydramine 50 Mg/Ml Sdv) 25 mg IVPUSH Q6H PRN PRN Reason: Itching or Nausea Docusate Sodium (Docusate Sodium 100 Mg Cap) 100 mg PO BID [facility] Last Admin: 08/06/20 08:43 Dose: 100 mg Documented by: Emollient Ointment (Lanolin 100% Cream 7 Gm Tube) 0 gm TOP ASDIRECTED PRN PRN Reason: Sore Nipples Fentanyl (Fentanyl 100 Mcg/2 Ml Sdv) 50 mcg IVPUSH Q1H PRN PRN Reason: Pain (severe 7-10) Ferrous Sulfate (Ferrous Sulfate 325 Mg Tab) 325 mg PO BIDMEALS [facility] Oxytocin/Sodium Chloride (Oxytocin 30 Unit/500 Ml-Ns) 30 unit in 500 mls @ 999 mls/hr IV TITRATE [facility] Tranexamic Acid 1,000 mg/ (Sodium Chloride) 110 mls @ 660 mls/hr IV ONETIME PRN PRN Reason: Bleeding Lactated Ringer's (Ringers, Lactated) 1,000 mls @ 150 mls/hr IV ASDIRECTED [facility] Last Admin: 08/04/20 23:01 Dose: 150 mls/hr Documented by: Oxytocin/Sodium Chloride (Oxytocin 30 Unit/500 Ml-Ns) 30 unit in 500 mls @ 2 mls/hr IV TITRATE [facility]; Protocol Last Titration: 08/05/20 05:59 Dose: 0 munits/min, 0 mls/hr Documented by: Lactated Ringer's (Ringers, Lactated) 1,000 mls @ 500 mls/hr IV [facility] Oxytocin/Sodium Chloride (Oxytocin 30 Unit/500 Ml-Ns) 30 unit in 500 mls @ 250 mls/hr IV TITRATE [facility] Lactated Ringer's (Ringers, Lactated) 1,000 mls @ 125 mls/hr IV ASDIRECTED [facility] Last Admin: 08/05/20 19:33 Dose: 125 mls/hr Documented by: Oxytocin/Lactated Ringer's (Pitocin In Lr 30 Units/500 Ml) 30 unit in 500 mls @ 999 mls/hr IV TITRATE [facility]; Protocol Tranexamic Acid 1,000 mg/ (Sodium Chloride) 110 mls @ 660 mls/hr IV ONETIME PRN PRN Reason: Bleeding Ibuprofen (Ibuprofen 800 Mg Tab) 800 mg PO Q8H PRN PRN Reason: mild pain or fever Lidocaine HCl (Lidocaine 1% 50 Ml Mdv) 50 ml INJECT ONETIME PRN PRN Reason: Laceration repair Methylergonovine Maleate (Methylergonovine 0.2 Mg/1 Ml Amp) 0.2 mg IM ASDIRECTED PRN PRN Reason: Post Hemorrhage Methylergonovine Maleate (Methylergonovine 0.2 Mg/1 Ml Amp) 0.2 mg IM ONETIME PRN PRN Reason: Excessive Vaginal Bleeding Misoprostol (Misoprostol 200 Mcg Tab) 200 mcg PO ONETIME PRN PRN Reason: Post Hemorrhage Misoprostol (Misoprostol 25 Mcg (1/4 Of 100 Mcg) Tab) 25 mcg VAG Q4H PRN PRN Reason: Cervical Ripening Last Admin: 08/04/20 05:20 Dose: 25 mcg Documented by: Misoprostol (Misoprostol 200 Mcg Tab) 1,000 mcg RECTAL ONETIME PRN PRN Reason: excessive bleeding Nalbuphine HCl (Nalbuphine 10 Mg/1 Ml Vial) 10 mg IVPUSH Q1H PRN PRN Reason: Pain (severe 7-10) Nalbuphine HCl (Nalbuphine 10 Mg/1 Ml Vial) 5 mg IVPUSH ASDIRECTED PRN PRN Reason: Itching Last Admin: 08/05/20 19:42 Dose: 5 mg Documented by: Ondansetron HCl (Ondansetron 4 Mg/2 Ml Sdv) 4 mg IVPUSH Q6H PRN PRN Reason: Nausea/Vomiting Ondansetron HCl (Ondansetron 4 Mg/2 Ml Sdv) 4 mg IVPUSH Q6H PRN PRN Reason: Nausea Ondansetron HCl (Ondansetron 4 Mg/2 Ml Sdv) 4 mg IVPUSH Q4H PRN PRN Reason: Nausea/Vomiting Oxycodone/Acetaminophen (Acetaminophen/Oxycodone 325-5 Mg Tab) 2 tab PO Q6H PRN PRN Reason: Pain (moderate 4-6) Oxycodone/Acetaminophen (Acetaminophen/Oxycodone 325-5 Mg Tab) 1 tab PO Q4H PRN PRN Reason: Pain (moderate 4-6) Oxycodone/Acetaminophen (Acetaminophen/Oxycodone 325-5 Mg Tab) 2 tab PO Q4H PRN PRN Reason: Pain (moderate 4-6) Oxytocin (Oxytocin 10 Units/1 Ml Sdv) 10 unit IM ASDIRECTED PRN PRN Reason: Excessive Vaginal Bleeding Sodium Chloride (Sodium Chloride 0.9% 10 Ml Syringe) 10 ml FLUSH ASDIRECTED PRN PRN Reason: Keep Vein Open Sodium Chloride (Sodium Chloride 0.9% 2.5 Ml Syringe) 2.5 ml FLUSH ASDIRECTED PRN PRN Reason: Keep Vein Open Sodium Chloride (Sodium Chloride 0.9% 10 Ml Sdv) 10 ml IV ASDIRECTED PRN PRN Reason: IV Use Sodium Chloride (Sodium Chloride 0.9% 10 Ml Syringe) 10 ml FLUSH ASDIRECTED PRN PRN Reason: Keep Vein Open Sodium Chloride (Sodium Chloride 0.9% 2.5 Ml Syringe) 2.5 ml FLUSH ASDIRECTED PRN PRN Reason: Keep Vein Open Sodium Chloride (Sodium Chloride 0.9% 10 Ml Sdv) 10 ml IV ASDIRECTED PRN PRN Reason: IV Use Sterile Water (Water For Irrigation,Sterile 1,000 Ml Container) 1,000 ml IRR ASDIRECTED PRN PRN Reason: delivery Terbutaline Sulfate (Terbutaline 1 Mg/Ml Sdv) 0.25 mg SUBCUT ASDIRECTED PRN PRN Reason: Tacysystole Discontinued Medications Bupivacaine HCl (Bupivacaine 0.5% 30 Ml Sdv) Confirm Administered Dose 30 ml .ROUTE .STK-MED ONE Stop: 08/05/20 07:00 Last Admin: 08/05/20 09:28 Dose: Not Given Documented by: Cefazolin Sodium (Cefazolin 1 Gm Vial) Confirm Administered Dose 2 gm .ROUTE .STK-MED ONE Stop: 08/05/20 06:39 Citric Acid/Sodium Citrate (Citric Acid/Sodium Citrate Solution 30 Ml Cup) 30 ml PO ONETIME ONE Stop: 08/05/20 06:20 Last Admin: 08/05/20 20:29 Dose: Not Given Documented by: Diphenhydramine HCl (Diphenhydramine 50 Mg/Ml Sdv) 25 mg IVPUSH Q4H PRN PRN Reason: Itching Stop: 08/06/20 07:16 Fentanyl (Fentanyl 100 Mcg/2 Ml Sdv) Confirm Administered Dose 100 mcg .ROUTE .STK-MED ONE Stop: 08/04/20 16:18 Last Admin: 08/05/20 09:26 Dose: Not Given Documented by: Fentanyl (Fentanyl 100 Mcg/2 Ml Sdv) Confirm Administered Dose 100 mcg .ROUTE .STK-MED ONE Stop: 08/05/20 01:15 Last Admin: 08/05/20 09:26 Dose: Not Given Documented by: Fentanyl (Fentanyl 100 Mcg/2 Ml Sdv) Confirm Administered Dose 100 mcg .ROUTE .STK-MED ONE Stop: 08/05/20 01:21 Last Admin: 08/05/20 09:27 Dose: Not Given Documented by: Fentanyl (Fentanyl 100 Mcg/2 Ml Sdv) Confirm Administered Dose 100 mcg .ROUTE .STK-MED ONE Stop: 08/05/20 06:26 Last Admin: 08/05/20 09:27 Dose: Not Given Documented by: Fentanyl (Fentanyl 100 Mcg/2 Ml Sdv) Confirm Administered Dose 100 mcg .ROUTE .STK-MED ONE Stop: 08/05/20 07:09 Ampicillin Sodium 2 gm/ Sodium (Chloride) 100 mls @ 200 mls/hr IV ONETIME ONE Stop: 08/03/20 21:29 Last Admin: 08/03/20 21:27 Dose: 200 mls/hr Documented by: Ampicillin Sodium 1 gm/ Sodium (Chloride) 50 mls @ 100 mls/hr IV Q4H [facility] Last Admin: 08/04/20 05:20 Dose: 100 mls/hr Documented by: Ampicillin Sodium 1 gm/ Sodium (Chloride) 50 mls @ 100 mls/hr IV Q4H [facility] Last Admin: 08/05/20 09:46 Dose: Not Given Documented by: Ropivacaine (Naropin 0.2%) Confirm Administered Dose 100 mls @ as directed .ROUTE .[facility] ONE Stop: 08/04/20 16:18 Last Admin: 08/05/20 09:26 Dose: Not Given Documented by: Ropivacaine (Naropin 0.2%) Confirm Administered Dose 100 mls @ as directed .ROUTE .[facility] ONE Stop: 08/05/20 01:15 Last Admin: 08/05/20 09:26 Dose: Not Given Documented by: Cefazolin Sodium/Dextrose 2 gm (/ Premix) 50 mls @ 100 mls/hr IV ONETIME ONE Stop: 08/05/20 06:48 Last Admin: 08/05/20 09:27 Dose: Not Given Documented by: Sodium Chloride (Normal Saline) Confirm Administered Dose 20 mls @ as directed .ROUTE .[facility] ONE Stop: 08/05/20 06:39 Ketorolac Tromethamine (Ketorolac 30 Mg/Ml Sdv) Confirm Administered Dose [address] ONE Stop: 08/05/20 06:36 Ketorolac Tromethamine (Ketorolac 30 Mg/Ml Sdv) 30 mg IVPUSH Q6H [facility] Stop: 08/06/20 08:31 Last Admin: 08/06/20 08:44 Dose: 30 mg Documented by: Lidocaine/Epinephrine (Lidocaine 2% With Epinephrine 1:200,000 20 Ml Sdv) Confirm Administered Dose 20 ml .ROUTE .ST-MED ONE Stop: 08/05/20 06:27 Last Admin: 08/05/20 20:29 Dose: Not Given Documented by: Midazolam HCl (Midazolam 1 Mg/Ml 2 Ml Sdv) Confirm Administered Dose 2 mg .ROUTE .STK-MED ONE Stop: 08/05/20 07:42 Misoprostol (Misoprostol 200 Mcg Tab) Confirm Administered Dose 400 mcg .ROUTE .STK-MED ONE Stop: 08/05/20 07:25 Last Admin: 08/05/20 09:28 Dose: Not Given Documented by: Morphine Sulfate (Morphine Pf 10 Mg/10 Ml Sdv) Confirm Administered Dose 10 mg .ROUTE .STK-MED ONE Stop: 08/05/20 06:38 Naloxone HCl (Naloxone 0.4 Mg/Ml Syringe) 0.1 mg IVPUSH ONETIME PRN PRN Reason: Respiratory Depression Stop: 08/06/20 07:16 Ondansetron HCl (Ondansetron 4 Mg/2 Ml Sdv) Confirm Administered Dose 4 mg .ROUTE .STK-MED ONE Stop: 08/05/20 06:36 Oxytocin (Oxytocin 10 Units/1 Ml Sdv) Confirm Administered Dose 20 unit .ROUTE .STK-MED ONE Stop: 08/05/20 06:36 Phenylephrine HCl (Phenylephrine 1% 10 Mg/Ml Sdv) Confirm Administered Dose 10 mg .ROUTE .STK-MED ONE Stop: 08/05/20 06:36 Propofol (Propofol 200 Mg/20 Ml Sdv) Confirm Administered Dose 200 mg .ROUTE .STK-MED ONE Stop: 08/05/20 07:04 - My Orders Last 24 Hours: My Active Orders 08/06/20 14:30 Ibuprofen [Motrin] 800 mg PO Q8H PRN 08/06/20 17:00 Ferrous Sulfate 325 mg PO BIDMEALS - Plan Plan:: Up to the restroom during rounds today. Ambulating and voiding without difficulty. Pain controlled with PO medications. Lochia decreasing. Tolerating regular diet without nausea. Denies lightheadedness, dizziness or headache. PO iron ordered due to anemia. Continues cares today.
--- NOTE | 2020-08-06 07:53 | PCM48HPAN ---
Post Anesthesia Note - EVALUATION WITHIN 48HRS OF ANESTHETIC Vital Signs in Normal Range: Yes Patient Participated in Evaluation: Yes Respiratory Function Stable: Yes Airway Patent: Yes Cardiovascular Function Stable: Yes Hydration Status Stable: Yes Pain Control Satisfactory: Yes Nausea and Vomiting Control Satisfactory: Yes Mental Status Recovered: Yes Vital Signs: Last Vital Signs Temp 36.2 C 08/06/20 05:00 Pulse 83 08/06/20 06:00 Resp 17 08/06/20 06:00 BP 110/52 L 08/06/20 05:00 Pulse Ox 93 L 08/05/20 23:00 - COMMENTS/OBSERVATIONS Free Text/Narrative:: Doing well.
[2020-08-06] MEDS: Docusate Sodium 100 MG Cap PO SCH ×2 (08:43→20:49)
[2020-08-06] MEDS ORDERED: Ibuprofen 800 MG Tab PO PRN (14:30)
[2020-08-06] MEDS: Simethicone 80 MG Tab.Chew PO PRN (16:41)
[2020-08-06] MEDS: Acetaminophen/oxyCODONE 325-5 MG Tab PO PRN ×2 (16:42→20:50)
[2020-08-06] MEDS: Ferrous Sulfate 325 MG Tab PO SCH (16:42)
--- NOTE | 2020-08-06 17:12 | OR ---
SURGEON: MARLENY PACE MD DATE OF PROCEDURE: 08/05/2020 PROCEDURE: Primary low transverse section. PREOPERATIVE DIAGNOSES: 1. Term intrauterine at 40 weeks and 2 days gestation. 2. Failure to descend in second stage of labor. 3. Group B Streptococcus positive. 4. Maternal obesity. POSTOPERATIVE DIAGNOSES: 1. Term intrauterine at 40 weeks and 2 days gestation. 2. Failure to descend in second stage of labor. 3. Group B Streptococcus positive. 4. Maternal obesity. 5. Uterine atony. PRIMARY SURGEON: Marleny Pace MD, present for the entire procedure. DIRECTOR EDUCATIONAL RADIO: ANDREA [id number] ANESTHESIA: Epidural. COMPLICATIONS: Uterine atony. ESTIMATED BLOOD LOSS: 800 mL. INTRAVENOUS FLUIDS: 1200 mL of crystalloid. URINE OUTPUT: 200 mL of clear urine at the end of procedure. INDICATIONS: A 30-year-old 1 at 40 weeks and 2 days with failed induction of labor due to failure to descend in the second stage. The patient underwent induction due to maternal obesity and living remote from facility. FINDINGS: A normal-appearing male , cephalic presentation, occiput posterior. Clear amniotic fluid. scores of 8 and 9. Weight 9 pounds 3 ounces. Normal- appearing uterus, fallopian tubes, and ovaries. PROCEDURE IN DETAIL: The patient was taken to the operating room where epidural anesthesia was found to be adequate. She was prepped and draped in the normal sterile fashion in a dorsal supine position with a leftward tilt. Skin incision was made with scalpel and carried down to the underlying layer of fascia, which was incised in the midline. The fascial incision was then extended laterally with Youngblood scissors bilaterally. The superior aspect of the fascial incision was then grasped with Kochbillie, elevated and dissected off the rectus muscles with Mayofalguni. The inferior aspect of the fascial incision was then grasped with Chitra and in a likewise manner was elevated and dissected off with [place]. The peritoneum was then entered digitally and extended with good visualization of the bladder. The Eric O-Ring was then inserted. Vesicouterine peritoneum was then identified, grasped with pickups, and entered sharply with Metzenbaum scissors. A bladder flap was then created digitally. Uterine incision was then created in a transverse fashion in the lower uterine segment with a scalpel and extended digitally. Clear fluid was noted. 's head was then delivered atraumatically. Nose and mouth suctioned with bulb. Cord clamped and cut, handed off to awaiting nursing staff. Arterial, venous, and cord blood gases were then obtained. The placenta was then expressed, and the uterus was then exteriorized from the abdomen and cleared of all clots and debris. The uterine incision was then repaired in a running locked fashion with 0 Monocryl. At this time, uterine atony was noted. IM Methergine and Hemabate were administered along with rectal Cytotec; however, uterine atony persisted. A B-Floyd suture was then performed with 0 chromic and uterine tone began to improve. The patient's vital signs were stable throughout this time. Excellent hemostasis was then noted. The uterus was then returned to the abdomen. Gutters cleared of all clots and debris. The Eric O-Ring was then removed. The rectus muscles were then reapproximated with 3-0 Vicryl. Prior to reapproximating the right lateral portion of the fascia, the patient complained of significant discomfort despite IV pain medication. 10 mL of local anesthetic was then injected into the incision, and pain was well controlled. The fascia was then closed with 0 Vicryl in a running fashion. The incision was again irrigated and hemostasis assured. Subcutaneous tissue was closed with 3-0 plain gut and skin was closed with 3-0 Vicryl on a Hai needle. Sponge, lap, and needle count were correct x2. Prophylactic antibiotics were given prior to procedure along with TXA in anticipation of increased risk for bleeding due to elongated induction of labor. The patient tolerated the procedure well and was taken to room for recovery in stable condition. DANIELLA / ERWIN /[id number] MANI
[2020-08-07] MEDS: Acetaminophen/oxyCODONE 325-5 MG Tab PO PRN ×5 (01:01→23:54)
--- NOTE | 2020-08-07 06:53 | PCM.PNPP ---
<Carole Acevedo L - Last Filed: 08/07/20 06:45> - General Info Date of Service: 08/07/20 Functional Status: Reports: Pain Controlled, Tolerating Diet, Ambulating, Urinating - Review of Systems General: Reports: No Symptoms Pulmonary: Reports: No Symptoms Cardiovascular: Reports: No Symptoms Gastrointestinal: Reports: Other (mild abdominal pain) Genitourinary: Reports: No Symptoms Musculoskeletal: Reports: No Symptoms - General Info Date of Service: 08/07/20 - Patient Data Vital Signs - Most Recent: Last Vital Signs Temp 36.6 C 08/07/20 01:12 Pulse 94 08/06/20 16:21 Resp 16 08/07/20 01:12 BP 166/65 H 08/07/20 01:12 Pulse Ox 95 08/07/20 01:12 Weight - Most Recent: 240 lb I&O - Last 24 Hours: Intake & Output 08/06/20 08/06/20 08/07/20 14:59 22:59 06:59 Output Total 600 Balance -600 Med Orders - Current: Current Medications Bisacodyl (Bisacodyl 10 Mg Supp) 10 mg RECTAL ONETIME PRN PRN Reason: Constipation Butorphanol Tartrate (Butorphanol 1 Mg/Ml Sdv) 1 mg IVPUSH Q1H PRN PRN Reason: Pain Carboprost Tromethamine (Carboprost Tromethamine 250 Mcg/1 Ml Amp) 250 mcg IM ASDIRECTED PRN PRN Reason: Post Hemorrhage Diphenhydramine HCl (Diphenhydramine 50 Mg/Ml Sdv) 25 mg IVPUSH Q6H PRN PRN Reason: Itching or Nausea Docusate Sodium (Docusate Sodium 100 Mg Cap) 100 mg PO BID [facility] Last Admin: 08/06/20 20:49 Dose: 100 mg Documented by: Emollient Ointment (Lanolin 100% Cream 7 Gm Tube) 0 gm TOP ASDIRECTED PRN PRN Reason: Sore Nipples Last Admin: 08/06/20 22:56 Dose: 1 gm Documented by: Fentanyl (Fentanyl 100 Mcg/2 Ml Sdv) 50 mcg IVPUSH Q1H PRN PRN Reason: Pain (severe 7-10) Ferrous Sulfate ([facility] S[facility] 325 Mg Tab) [facility] Last Admin: 08/06/20 16:42 Dose: 325 mg Documented by: Oxytocin/Sodium Chloride (Oxytocin 30 Unit/500 Ml-Ns) 30 unit in 500 mls @ 999 mls/hr IV TITRATE [facility] Tranexamic Acid 1,000 mg/ (Sodium Chloride) 110 mls @ 660 mls/hr IV ONETIME PRN PRN Reason: Bleeding Lactated Ringer's (Ringers, Lactated) 1,000 mls @ 150 mls/hr IV ASDIRECTED [facility] Last Admin: 08/04/20 23:01 Dose: 150 mls/hr Documented by: Oxytocin/Sodium Chloride (Oxytocin 30 Unit/500 Ml-Ns) 30 unit in 500 mls @ 2 mls/hr IV TITRATE [facility]; Protocol Last Titration: 08/05/20 05:59 Dose: 0 munits/min, 0 mls/hr Documented by: Lactated Ringer's (Ringers, Lactated) 1,000 mls @ 500 mls/hr IV BOLUS [facility] Oxytocin/Sodium Chloride (Oxytocin 30 Unit/500 Ml-Ns) 30 unit in 500 mls @ 250 mls/hr IV TITRATE [facility] Lactated Ringer's (Ringers, Lactated) 1,000 mls @ 125 mls/hr IV ASDIRECTED [facility] Last Admin: 08/05/20 19:33 Dose: 125 mls/hr Documented by: Oxytocin/Lactated Ringer's (Pitocin In Lr 30 Units/500 Ml) 30 unit in 500 mls @ 999 mls/hr IV TITRATE [facility]; Protocol Tranexamic Acid 1,000 mg/ (Sodium Chloride) 110 mls @ 660 mls/hr IV ONETIME PRN PRN Reason: Bleeding Ibuprofen (Ibuprofen 800 Mg Tab) 800 mg PO Q8H PRN PRN Reason: mild pain or fever Lidocaine HCl (Lidocaine 1% 50 Ml Mdv) 50 ml INJECT ONETIME PRN PRN Reason: Laceration repair Methylergonovine Maleate (Methylergonovine 0.2 Mg/1 Ml Amp) 0.2 mg IM ASDIRECTED PRN PRN Reason: Post Hemorrhage Methylergonovine Maleate (Methylergonovine 0.2 Mg/1 Ml Amp) 0.2 mg IM ONETIME PRN PRN Reason: Excessive Vaginal Bleeding Misoprostol (Misoprostol 200 Mcg Tab) 200 mcg PO ONETIME PRN PRN Reason: Post Hemorrhage Misoprostol (Misoprostol 25 Mcg (1/4 Of 100 Mcg) Tab) 25 mcg VAG Q4H PRN PRN Reason: Cervical Ripening Last Admin: 08/04/20 05:20 Dose: 25 mcg Documented by: Misoprostol (Misoprostol 200 Mcg Tab) 1,000 mcg RECTAL ONETIME PRN PRN Reason: excessive bleeding Nalbuphine HCl (Nalbuphine 10 Mg/1 Ml Vial) 10 mg IVPUSH Q1H PRN PRN Reason: Pain (severe 7-10) Nalbuphine HCl (Nalbuphine 10 Mg/1 Ml Vial) 5 mg IVPUSH ASDIRECTED PRN PRN Reason: Itching Last Admin: 08/05/20 19:42 Dose: 5 mg Documented by: Ondansetron HCl (Ondansetron 4 Mg/2 Ml Sdv) 4 mg IVPUSH Q6H PRN PRN Reason: Nausea/Vomiting Ondansetron HCl (Ondansetron 4 Mg/2 Ml Sdv) 4 mg IVPUSH Q6H PRN PRN Reason: Nausea Ondansetron HCl (Ondansetron 4 Mg/2 Ml Sdv) 4 mg IVPUSH Q4H PRN PRN Reason: Nausea/Vomiting Oxycodone/Acetaminophen (Acetaminophen/Oxycodone 325-5 Mg Tab) 2 tab PO Q6H PRN PRN Reason: Pain (moderate 4-6) Oxycodone/Acetaminophen (Acetaminophen/Oxycodone 325-5 Mg Tab) 1 tab PO Q4H PRN PRN Reason: Pain (moderate 4-6) Oxycodone/Acetaminophen (Acetaminophen/Oxycodone 325-5 Mg Tab) 2 tab PO Q4H PRN PRN Reason: Pain (moderate 4-6) Last Admin: 08/07/20 01:01 Dose: 2 tab Documented by: Oxytocin (Oxytocin 10 Units/1 Ml Sdv) 10 unit IM ASDIRECTED PRN PRN Reason: Excessive Vaginal Bleeding Simethicone (Simethicone 80 Mg Tab.Chew) 160 mg PO Q8H PRN PRN Reason: Gas Last Admin: 08/06/20 16:41 Dose: 160 mg Documented by: Sodium Chloride (Sodium Chloride 0.9% 10 Ml Syringe) 10 ml FLUSH ASDIRECTED PRN PRN Reason: Keep Vein Open Sodium Chloride (Sodium Chloride 0.9% 2.5 Ml Syringe) 2.5 ml FLUSH ASDIRECTED PRN PRN Reason: Keep Vein Open Sodium Chloride (Sodium Chloride 0.9% 10 Ml Sdv) 10 ml IV ASDIRECTED PRN PRN Reason: IV Use Sodium Chloride (Sodium Chloride 0.9% 10 Ml Syringe) 10 ml FLUSH ASDIRECTED PRN PRN Reason: Keep Vein Open Sodium Chloride (Sodium Chloride 0.9% 2.5 Ml Syringe) 2.5 ml FLUSH ASDIRECTED PRN PRN Reason: Keep Vein Open Sodium Chloride (Sodium Chloride 0.9% 10 Ml Sdv) 10 ml IV ASDIRECTED PRN PRN Reason: IV Use Sterile Water (Water For Irrigation,Sterile 1,000 Ml Container) 1,000 ml IRR ASDIRECTED PRN PRN Reason: delivery Terbutaline Sulfate (Terbutaline 1 Mg/Ml Sdv) 0.25 mg SUBCUT ASDIRECTED PRN PRN Reason: Tacysystole Discontinued Medications Bupivacaine HCl (Bupivacaine 0.5% 30 Ml Sdv) Confirm Administered Dose 30 ml .ROUTE .[employer]MED ONE Stop: 08/05/20 07:00 Last Admin: 08/05/20 09:28 Dose: Not Given Documented by: Cefazolin Sodium (Cefazolin 1 Gm Vial) Confirm Administered Dose 2 gm .ROUTE .STK-MED ONE Stop: 08/05/20 06:39 Citric Acid/Sodium Citrate (Citric Acid/Sodium Citrate Solution 30 Ml Cup) 30 ml PO ONETIME ONE Stop: 08/05/20 06:20 Last Admin: 08/05/20 20:29 Dose: Not Given Documented by: Diphenhydramine HCl (Diphenhydramine 50 Mg/Ml Sdv) 25 mg IVPUSH Q4H PRN PRN Reason: Itching Stop: 08/06/20 07:16 Fentanyl (Fentanyl 100 Mcg/2 Ml Sdv) Confirm Administered Dose 100 mcg .ROUTE .STK-MED ONE Stop: 08/04/20 16:18 Last Admin: 08/05/20 09:26 Dose: Not Given Documented by: Fentanyl (Fentanyl 100 Mcg/2 Ml Sdv) Confirm Administered Dose 100 mcg .ROUTE .STK-MED ONE Stop: 08/05/20 01:15 Last Admin: 08/05/20 09:26 Dose: Not Given Documented by: Fentanyl (Fentanyl 100 Mcg/2 Ml Sdv) Confirm Administered Dose 100 mcg .ROUTE .STK-MED ONE Stop: 08/05/20 01:21 Last Admin: 08/05/20 09:27 Dose: Not Given Documented by: Fentanyl (Fentanyl 100 Mcg/2 Ml Sdv) Confirm Administered Dose 100 mcg .ROUTE .STK-MED ONE Stop: 08/05/20 06:26 Last Admin: 08/05/20 09:27 Dose: Not Given Documented by: Fentanyl (Fentanyl 100 Mcg/2 Ml Sdv) Confirm Administered Dose 100 mcg .ROUTE .STK-MED ONE Stop: 08/05/20 07:09 Ampicillin Sodium 2 gm/ Sodium (Chloride) 100 mls @ 200 mls/hr IV ONETIME ONE Stop: 08/03/20 21:29 Last Admin: 08/03/20 21:27 Dose: 200 mls/hr Documented by: Ampicillin Sodium 1 gm/ Sodium (Chloride) 50 mls @ 100 mls/hr IV Q4H [facility] Last Admin: 08/04/20 05:20 Dose: 100 mls/hr Documented by: Ampicillin Sodium 1 gm/ Sodium (Chloride) 50 mls @ 100 mls/hr IV Q4H [facility] Last Admin: 08/05/20 09:46 Dose: Not Given Documented by: Ropivacaine (Naropin 0.2%) Confirm Administered Dose 100 mls @ as directed .ROUTE .STK-MED ONE Stop: 08/04/20 16:18 Last Admin: 08/05/20 09:26 Dose: Not Given Documented by: Ropivacaine (Naropin 0.2%) Confirm Administered Dose 100 mls @ as directed . ROUTE .STK-MED ONE Stop: 08/05/20 01:15 Last Admin: 08/05/20 09:26 Dose: Not Given Documented by: Cefazolin Sodium/Dextrose 2 gm (/ Premix) 50 mls @ 100 mls/hr IV ONETIME ONE Stop: 08/05/20 06:48 Last Admin: 08/05/20 09:27 Dose: Not Given Documented by: Sodium Chloride (Normal Saline) Confirm Administered Dose 20 mls @ as directed .ROUTE .STK-MED ONE Stop: 08/05/20 06:39 Ketorolac Tromethamine (Ketorolac 30 Mg/Ml Sdv) Confirm Administered Dose 30 mg .ROUTE .STK-MED ONE Stop: 08/05/20 06:36 Ketorolac Tromethamine (Ketorolac 30 Mg/Ml Sdv) 30 mg IVPUSH Q6H [facility] Stop: 08/06/20 08:31 Last Admin: 08/06/20 08:44 Dose: 30 mg Documented by: Lidocaine/Epinephrine (Lidocaine 2% With Epinephrine 1:200,000 20 Ml Sdv) Confirm Administered Dose 20 ml .ROUTE .STK-MED ONE Stop: 08/05/20 06:27 Last Admin: 08/05/20 20:29 Dose: Not Given Documented by: Midazolam HCl (Midazolam 1 Mg/Ml 2 Ml Sdv) Confirm Administered Dose 2 mg .ROUTE .STK-MED ONE Stop: 08/05/20 07:42 Misoprostol (Misoprostol 200 Mcg Tab) Confirm Administered Dose 400 mcg .ROUTE .STK-MED ONE Stop: 08/05/20 07:25 Last Admin: 08/05/20 09:28 Dose: Not Given Documented by: Morphine Sulfate (Morphine Pf 10 Mg/10 Ml Sdv) Confirm Administered Dose 10 mg .ROUTE .STK-MED ONE Stop: 08/05/20 06:38 Naloxone HCl (Naloxone 0.4 Mg/Ml Syringe) 0.1 mg IVPUSH ONETIME PRN PRN Reason: Respiratory Depression Stop: 08/06/20 07:16 Ondansetron HCl (Ondansetron 4 Mg/2 Ml Sdv) Confirm Administered Dose 4 mg .ROUTE .STK-MED ONE Stop: 08/05/20 06:36 Oxytocin (Oxytocin 10 Units/1 Ml Sdv) Confirm Administered Dose 20 unit .ROUTE .STK-MED ONE Stop: 08/05/20 06:36 Phenylephrine HCl (Phenylephrine 1% 10 Mg/Ml Sdv) Confirm Administered Dose 10 mg .ROUTE .STK-MED ONE Stop: 08/05/20 06:36 Propofol (Propofol 200 Mg/20 Ml Sdv) Confirm Administered Dose 200 mg .ROUTE .STK-MED ONE Stop: 08/05/20 07:04 - Infant Interaction Disposition, : [place] to Nursery Interaction: Holding Feeding: Breastfed ; Nursed Well, Continues to Breastfeed, Difficulty with Latch-on, Other (see below) ( and supplementing with formula) Support Person: - Recovery Exam Fundal Tone: Firm Fundal Level: 3 Fingerbreadths Below Umbilicus Fundal Placement: Midline Lochia Amount: Scant Lochia Color: [place] Episiotomy/Laceration: None Bladder Status: Voiding Urinary Elimination: Voided, Other (see below) - Exam General: Alert, Oriented Lungs: Clear to Auscultation, Normal Respiratory Effort Cardiovascular: Regular Rate, Regular Rhythm GI/Abdominal Exam: Normal Bowel Sounds, Soft, No Mass, Other (diffusely tender) Extremities: Normal Range of Motion, Non-Tender, Pedal Edema Skin: Warm, Dry, Intact Wound/Incisions: Dressing Dry and Intact Psy/Mental Status: Alert - Problem List Review Problem List Initiated/Reviewed/Updated: Yes - Assessment Assessment:: 30 y/o POD#12 S/P section for failure to progress. Skipped a dose of percocet yesterday, not a good idea per pt. Pain is well-controlled today. Did have some chills yesterday. Restless night, [place] went to nursery around 3AM. Per pt, he's doing well and she's slowly improving. Bowel and bladder are functioning well, oral intake is fine, and she's slowly ambulating easier. Hgb/Hct are low, iron was started. - Plan Plan:: Re-assess hgb/hct. If comfortable, schedule follow-up appt and continue iron supplement for 6-8 weeks. May re-assess blood work at that time. Outpatient pain management. <Marleny Trevino - Last Filed: 08/07/20 09:29> - Patient Data Vital Signs - Most Recent: Last Vital Signs Temp 96.9 F 08/07/20 08:10 Pulse 78 08/07/20 08:10 Resp 18 08/07/20 08:10 BP 124/62 08/07/20 08:10 Pulse Ox 99 08/07/20 08:10 Med Orders - Current: Current Medications Bisacodyl (Bisacodyl 10 Mg Supp) 10 mg RECTAL ONETIME PRN PRN Reason: Constipation Butorphanol Tartrate (Butorphanol 1 Mg/Ml Sdv) 1 mg IVPUSH Q1H PRN PRN Reason: Pain Carboprost Tromethamine (Carboprost Tromethamine 250 Mcg/1 Ml Amp) 250 mcg IM ASDIRECTED PRN PRN Reason: Post Hemorrhage Diphenhydramine HCl (Diphenhydramine 50 Mg/Ml Sdv) 25 mg IVPUSH Q6H PRN PRN Reason: Itching or Nausea Docusate Sodium (Docusate Sodium 100 Mg Cap) 100 mg PO BID [facility] Last Admin: 08/07/20 08:12 Dose: 100 mg Documented by: Emollient Ointment (Lanolin 100% Cream 7 Gm Tube) 0 gm TOP ASDIRECTED PRN PRN Reason: Sore Nipples Last Admin: 08/06/20 22:56 Dose: 1 gm Documented by: Fentanyl (Fentanyl 100 Mcg/2 Ml Sdv) 50 mcg IVPUSH Q1H PRN PRN Reason: Pain (severe 7-10) Ferrous Sulfate (Ferrous Sulfate 325 Mg Tab) 325 mg PO BIDMEALS [facility] Last Admin: 08/07/20 08:12 Dose: 325 mg Documented by: Oxytocin/Sodium Chloride (Oxytocin 30 Unit/500 Ml-Ns) 30 unit in 500 mls @ 999 mls/hr IV TITRATE [facility] Tranexamic Acid 1,000 mg/ (Sodium Chloride) 110 mls @ 660 mls/hr IV ONETIME PRN PRN Reason: Bleeding Lactated Ringer's (Ringers, Lactated) 1,000 mls @ 150 mls/hr IV ASDIRECTED [facility] Last Admin: 08/04/20 23:01 Dose: 150 mls/hr Documented by: Oxytocin/Sodium Chloride (Oxytocin 30 Unit/500 Ml-Ns) 30 unit in 500 mls @ 2 mls/hr IV TITRATE [facility]; Protocol Last Titration: 08/05/20 05:59 Dose: 0 munits/min, 0 mls/hr Documented by: Lactated Ringer's (Ringers, Lactated) 1,000 mls @ 500 mls/hr IV BOLUS [facility] Oxytocin/Sodium Chloride (Oxytocin 30 Unit/500 Ml-Ns) 30 unit in 500 mls @ 250 mls/hr IV TITRATE [facility] Lactated Ringer's (Ringers, Lactated) 1,000 mls @ 125 mls/hr IV ASDIRECTED [facility] Last Admin: 08/05/20 19:33 Dose: 125 mls/hr Documented by: Oxytocin/Lactated Ringer's (Pitocin In Lr 30 Units/500 Ml) 30 unit in 500 mls @ 999 mls/hr IV TITRATE [facility]; Protocol Tranexamic Acid 1,000 mg/ (Sodium Chloride) 110 mls @ 660 mls/hr IV ONETIME PRN PRN Reason: Bleeding Ibuprofen (Ibuprofen 800 Mg Tab) 800 mg PO Q8H PRN PRN Reason: mild pain or fever Lidocaine HCl (Lidocaine 1% 50 Ml Mdv) 50 ml INJECT ONETIME PRN PRN Reason: Laceration repair Methylergonovine Maleate (Methylergonovine 0.2 Mg/1 Ml Amp) 0.2 mg IM DIRECTED PRN PRN Reason: Post Hemorrhage Methylergonovine Maleate (Methylergonovine 0.2 Mg/1 Ml Amp) 0.2 mg IM ONETIME PRN PRN Reason: Excessive Vaginal Bleeding Misoprostol (Misoprostol 200 Mcg Tab) 200 mcg PO ONETIME PRN PRN Reason: Post Hemorrhage Misoprostol (Misoprostol 25 Mcg (1/4 Of 100 Mcg) Tab) 25 mcg VAG Q4H PRN PRN Reason: Cervical Ripening Last Admin: 08/04/20 05:20 Dose: 25 mcg Documented by: Misoprostol (Misoprostol 200 Mcg Tab) 1,000 mcg RECTAL ONETIME PRN PRN Reason: excessive bleeding Nalbuphine HCl (Nalbuphine 10 Mg/1 Ml Vial) 10 mg IVPUSH Q1H PRN PRN Reason: Pain (severe 7-10) Nalbuphine HCl (Nalbuphine 10 Mg/1 Ml Vial) 5 mg IVPUSH ASDIRECTED PRN PRN Reason: Itching Last Admin: 08/05/20 19:42 Dose: 5 mg Documented by: Ondansetron HCl (Ondansetron 4 Mg/2 Ml Sdv) 4 mg IVPUSH Q6H PRN PRN Reason: Nausea/Vomiting Ondansetron HCl (Ondansetron 4 Mg/2 Ml Sdv) 4 mg IVPUSH Q6H PRN PRN Reason: Nausea Ondansetron HCl (Ondansetron 4 Mg/2 Ml Sdv) 4 mg IVPUSH Q4H PRN PRN Reason: Nausea/Vomiting Oxycodone/Acetaminophen (Acetaminophen/Oxycodone 325-5 Mg Tab) 2 tab PO Q6H PRN PRN Reason: Pain (moderate 4-6) Oxycodone/Acetaminophen (Acetaminophen/Oxycodone 325-5 Mg Tab) 1 tab PO Q4H PRN PRN Reason: Pain (moderate 4-6) Oxycodone/Acetaminophen (Acetaminophen/Oxycodone 325-5 Mg Tab) 2 tab PO Q4H PRN PRN Reason: Pain (moderate 4-6) Last Admin: 08/07/20 08:12 Dose: 2 tab Documented by: Oxytocin (Oxytocin 10 Units/1 Ml Sdv) 10 unit IM ASDIRECTED PRN PRN Reason: Excessive Vaginal Bleeding Simethicone (Simethicone 80 Mg Tab.Chew) 160 mg PO Q8H PRN PRN Reason: Gas Last Admin: 08/07/20 08:26 Dose: 160 mg Documented by: Sodium Chloride (Sodium Chloride 0.9% 10 Ml Syringe) 10 ml FLUSH ASDIRECTED PRN PRN Reason: Keep Vein Open Sodium Chloride (Sodium Chloride 0.9% 2.5 Ml Syringe) 2.5 ml FLUSH ASDIRECTED PRN PRN Reason: Keep Vein Open Sodium Chloride (Sodium Chloride 0.9% 10 Ml Sdv) 10 ml IV ASDIRECTED PRN PRN Reason: IV Use Sodium Chloride (Sodium Chloride 0.9% 10 Ml Syringe) 10 ml FLUSH ASDIRECTED PRN PRN Reason: Keep Vein Open Sodium Chloride (Sodium Chloride 0.9% 2.5 Ml Syringe) 2.5 ml FLUSH ASDIRECTED PRN PRN Reason: Keep Vein Open Sodium Chloride (Sodium Chloride 0.9% 10 Ml Sdv) 10 ml IV ASDIRECTED PRN PRN Reason: IV Use Sterile Water (Water For Irrigation,Sterile 1,000 Ml Container) 1,000 ml IRR ASDIRECTED PRN PRN Reason: delivery Terbutaline Sulfate (Terbutaline 1 Mg/Ml Sdv) 0.25 mg SUBCUT ASDIRECTED PRN PRN Reason: Tacysystole Discontinued Medications Bupivacaine HCl (Bupivacaine 0.5% 30 Ml Sdv) Confirm Administered Dose 30 ml .ROUTE .STK-MED ONE Stop: 08/05/20 07:00 Last Admin: 08/05/20 09:28 Dose: Not Given Documented by: Cefazolin Sodium (Cefazolin 1 Gm Vial) Confirm Administered Dose 2 gm .ROUTE .STK-MED ONE Stop: 08/05/20 06:39 Citric Acid/Sodium Citrate (Citric Acid/Sodium Citrate Solution 30 Ml Cup) 30 ml PO ONETIME ONE Stop: 08/05/20 06:20 Last Admin: 08/05/20 20:29 Dose: Not Given Documented by: Diphenhydramine HCl (Diphenhydramine 50 Mg/Ml Sdv) 25 mg IVPUSH Q4H PRN PRN Reason: Itching Stop: 08/06/20 07:16 Fentanyl (Fentanyl 100 Mcg/2 Ml Sdv) Confirm Administered Dose 100 mcg .ROUTE .STK-MED ONE Stop: 08/04/20 16:18 Last Admin: 08/05/20 09:26 Dose: Not Given Documented by: Fentanyl (Fentanyl 100 Mcg/2 Ml Sdv) Confirm Administered Dose 100 mcg .ROUTE .STK-MED ONE Stop: 08/05/20 01:15 Last Admin: 08/05/20 09:26 Dose: Not Given Documented by: Fentanyl (Fentanyl 100 Mcg/2 Ml Sdv) Confirm Administered Dose 100 mcg .ROUTE .STK-MED ONE Stop: 08/05/20 01:21 Last Admin: 08/05/20 09:27 Dose: Not Given Documented by: Fentanyl (Fentanyl 100 Mcg/2 Ml Sdv) Confirm Administered Dose 100 mcg .ROUTE .STK-MED ONE Stop: 08/05/20 06:26 Last Admin: 08/05/20 09:27 Dose: Not Given Documented by: Fentanyl (Fentanyl 100 Mcg/2 Ml Sdv) Confirm Administered Dose 100 mcg .ROUTE .STK-MED ONE Stop: 08/05/20 07:09 Ampicillin Sodium 2 gm/ Sodium (Chloride) 100 mls @ 200 mls/hr IV ONETIME ONE Stop: 08/03/20 21:29 Last Admin: 08/03/20 21:27 Dose: 200 mls/hr Documented by: Ampicillin Sodium 1 gm/ Sodium (Chloride) 50 mls @ 100 mls/hr IV Q4H [facility] Last Admin: 08/04/20 05:20 Dose: 100 mls/hr Documented by: Ampicillin Sodium 1 gm/ Sodium (Chloride) 50 mls @ 100 mls/hr IV Q4H [facility] Last Admin: 08/05/20 09:46 Dose: Not Given Documented by: Ropivacaine (Naropin 0.2%) Confirm Administered Dose 100 mls @ as directed .ROUTE .STK-MED ONE Stop: 08/04/20 16:18 Last Admin: 08/05/20 09:26 Dose: Not Given Documented by: Ropivacaine (Naropin 0.2%) Confirm Administered Dose 100 mls @ as directed .ROUTE .STK-MED ONE Stop: 08/05/20 01:15 Last Admin: 08/05/20 09:26 Dose: Not Given Documented by: Cefazolin Sodium/Dextrose 2 gm (/ Premix) 50 mls @ 100 mls/hr IV ONETIME ONE Stop: 08/05/20 06:48 Last Admin: 08/05/20 09:27 Dose: Not Given Documented by: Sodium Chloride (Normal Saline) Confirm Administered Dose 20 mls @ as directed .ROUTE .STK-MED ONE Stop: 08/05/20 06:39 Ketorolac Tromethamine (Ketorolac 30 Mg/Ml Sdv) Confirm Administered Dose 30 mg .ROUTE .STK-MED ONE Stop: 08/05/20 06:36 Ketorolac Tromethamine (Ketorolac 30 Mg/Ml Sdv) 30 mg IVPUSH Q6H [facility] Stop: 08/06/20 08:31 Last Admin: 08/06/20 08:44 Dose: 30 mg Documented by: Lidocaine/Epinephrine (Lidocaine 2% With Epinephrine 1:200,000 20 Ml Sdv) Confi rm Administered Dose 20 ml .ROUTE .STK-MED ONE Stop: 08/05/20 06:27 Last Admin: 08/05/20 20:29 Dose: Not Given Documented by: Midazolam HCl (Midazolam 1 Mg/Ml 2 Ml Sdv) Confirm Administered Dose 2 mg .ROUTE .ST-MED ONE Stop: 08/05/20 07:42 Misoprostol (Misoprostol 200 Mcg Tab) Confirm Administered Dose 400 mcg .ROUTE .STK-MED ONE Stop: 08/05/20 07:25 Last Admin: 08/05/20 09:28 Dose: Not Given Documented by: Morphine Sulfate (Morphine Pf 10 Mg/10 Ml Sdv) Confirm Administered Dose 10 mg .ROUTE .STK-MED ONE Stop: 08/05/20 06:38 Naloxone HCl (Naloxone 0.4 Mg/Ml Syringe) 0.1 mg IVPUSH ONETIME PRN PRN Reason: Respiratory Depression Stop: 08/06/20 07:16 Ondansetron HCl (Ondansetron 4 Mg/2 Ml Sdv) Confirm Administered Dose 4 mg .ROUTE .STK-MED ONE Stop: 08/05/20 06:36 Oxytocin (Oxytocin 10 Units/1 Ml Sdv) Confirm Administered Dose 20 unit .ROUTE .STK-MED ONE Stop: 08/05/20 06:36 Phenylephrine HCl (Phenylephrine 1% 10 Mg/Ml Sdv) Confirm Administered Dose 10 mg .ROUTE .STK-MED ONE Stop: 08/05/20 06:36 Propofol (Propofol 200 Mg/20 Ml Sdv) Confirm Administered Dose 200 mg .ROUTE .STK-MED ONE Stop: 08/05/20 07:04 - My Orders Last 24 Hours: My Active Orders 08/06/20 14:30 Ibuprofen [Motrin] 800 mg PO Q8H PRN 08/06/20 16:19 Simethicone 160 mg PO Q8H PRN 08/06/20 17:00 Ferrous Sulfate 325 mg PO BIDMEALS - Plan Plan:: Routine cares * Rh positive, rubella immune, GBS positive; s/p IV Ampicillin * Ambulating and voiding without difficulty * Pain controlled with PO medications, had difficulty with pain yesterday * Encourage ambulation and fluid intake today * Tolerating regular diet * , latch is improving. Has attempted breastpumping x1 Anemia * Hgb 7.6 yesterday * Asymptomatic * Continue PO iron BID with meals * Lochia decreasing Dispo: stable. Will continue to work on pain control today. Anticipate discharge POD2-3 pending maternal/ status.
[2020-08-07] MEDS: Docusate Sodium 100 MG Cap PO SCH ×2 (08:12→21:46)
[2020-08-07] MEDS: Ferrous Sulfate 325 MG Tab PO SCH ×2 (08:12→17:10)
[2020-08-07] MEDS: Simethicone 80 MG Tab.Chew PO PRN ×2 (08:26→17:10)
--- NOTE | 2020-08-08 07:21 | PCM.PNPP ---
<Carole Acevedo - Last Filed: 08/08/20 07:31> - General Info Date of Service: 08/08/20 Subjective Update: Pt was sitting up in a chair at the bedside. Pt slept funny last night, so she has some generalized pain this morning, otherwise doing well. Passed one clot yesterday. Able to walk up and down the hough a few times yesterday. Can pick [place] up while standing, unable to carry while sitting. No dizziness, lightheadedness, or weakness. Functional Status: Reports: Pain Controlled, Tolerating Diet, Ambulating, Urinating, Other - Review of Systems General: Reports: No Symptoms Pulmonary: Reports: No Symptoms Cardiovascular: Reports: No Symptoms Gastrointestinal: Reports: No Symptoms Genitourinary: Reports: No Symptoms Psychiatric: Reports: No Symptoms - General Info Date of Service: 08/08/20 - Patient Data Vital Signs - Most Recent: Last Vital Signs Temp 36.5 C 08/07/20 23:58 Pulse 79 08/07/20 19:54 Resp 14 08/07/20 23:58 BP 130/74 08/07/20 23:58 Pulse Ox 98 08/07/20 23:58 Weight - Most Recent: 240 lb Med Orders - Current: Current Medications Bisacodyl (Bisacodyl 10 Mg Supp) 10 mg RECTAL ONETIME PRN PRN Reason: Constipation Butorphanol Tartrate (Butorphanol 1 Mg/Ml Sdv) 1 mg IVPUSH Q1H PRN PRN Reason: Pain Carboprost Tromethamine (Carboprost Tromethamine 250 Mcg/1 Ml Amp) 250 mcg IM ASDIRECTED PRN PRN Reason: Post Hemorrhage Diphenhydramine HCl (Diphenhydramine 50 Mg/Ml Sdv) 25 mg IVPUSH Q6H PRN PRN Reason: Itching or Nausea Docusate Sodium (Docusate Sodium 100 Mg Cap) 100 mg PO BID [facility] Last Admin: 08/07/20 21:46 Dose: 100 mg Documented by: Emollient Ointment (Lanolin 100% Cream 7 Gm Tube) 0 gm TOP ASDIRECTED PRN PRN Reason: Sore Nipples Last Admin: 08/06/20 22:56 Dose: 1 gm Documented by: Fentanyl (Fentanyl 100 Mcg/2 Ml Sdv) 50 mcg IVPUSH Q1H PRN PRN Reason: Pain (severe 7-10) Ferrous Sulfate (Ferrous Sulfate 325 Mg Tab) 325 mg PO BIDMEALS [facility] Last Admin: 08/07/20 17:10 Dose: 325 mg Documented by: Oxytocin/Sodium Chloride (Oxytocin 30 Unit/500 Ml-Ns) 30 unit in 500 mls @ 999 mls/hr IV TITRATE [facility] Tranexamic Acid 1,000 mg/ (Sodium Chloride) 110 mls @ 660 mls/hr IV ONETIME PRN PRN Reason: Bleeding Lactated Ringer's (Ringers, Lactated) 1,000 mls @ 150 mls/hr IV ASDIRECTED [facility] Last Admin: 08/04/20 23:01 Dose: 150 mls/hr Documented by: Oxytocin/Sodium Chloride (Oxytocin 30 Unit/500 Ml-Ns) 30 unit in 500 mls @ 2 mls/hr IV TITRATE [facility]; Protocol Last Titration: 08/05/20 05:59 Dose: 0 munits/min, 0 mls/hr Documented by: Lactated Ringer's (Ringers, Lactated) 1,000 mls @ 500 mls/hr IV BOLUS [facility] Oxytocin/Sodium Chloride (Oxytocin 30 Unit/500 Ml-Ns) 30 unit in 500 mls @ 250 mls/hr IV TITRATE [facility] Lactated Ringer's (Ringers, Lactated) 1,000 mls @ 125 mls/hr IV ASDIRECTED [facility] Last Admin: 08/05/20 19:33 Dose: 125 mls/hr Documented by: Oxytocin/Lactated Ringer's (Pitocin In Lr 30 Units/500 Ml) 30 unit in 500 mls @ 999 mls/hr IV TITRATE [facility]; Protocol Tranexamic Acid 1,000 mg/ (Sodium Chloride) 110 mls @ 660 mls/hr IV ONETIME PRN PRN Reason: Bleeding Ibuprofen (Ibuprofen 800 Mg Tab) 800 mg PO Q8H PRN PRN Reason: mild pain or fever Lidocaine HCl (Lidocaine 1% 50 Ml Mdv) 50 ml INJECT ONETIME PRN PRN Reason: Laceration repair Methylergonovine Maleate (Methylergonovine 0.2 Mg/1 Ml Amp) 0.2 mg IM ASDIRECTED PRN PRN Reason: Post Hemorrhage Methylergonovine Maleate (Methylergonovine 0.2 Mg/1 Ml Amp) 0.2 mg IM ONETIME PRN PRN Reason: Excessive Vaginal Bleeding Misoprostol (Misoprostol 200 Mcg Tab) 200 mcg PO ONETIME PRN PRN Reason: Post Hemorrhage Misoprostol (Misoprostol 25 Mcg (1/4 Of 100 Mcg) Tab) 25 mcg VAG Q4H PRN PRN Reason: Cervical Ripening Last Admin: 08/04/20 05:20 Dose: 25 mcg Documented by: Misoprostol (Misoprostol 200 Mcg Tab) 1,000 mcg RECTAL ONETIME PRN PRN Reason: excessive bleeding Nalbuphine HCl (Nalbuphine 10 Mg/1 Ml Vial) 10 mg IVPUSH Q1H PRN PRN Reason: Pain (severe 7-10) Nalbuphine HCl (Nalbuphine 10 Mg/1 Ml Vial) 5 mg IVPUSH ASDIRECTED PRN PRN Reason: Itching Last Admin: 08/05/20 19:42 Dose: 5 mg Documented by: Ondansetron HCl (Ondansetron 4 Mg/2 Ml Sdv) 4 mg IVPUSH Q6H PRN PRN Reason: Nausea/Vomiting Ondansetron HCl (Ondansetron 4 Mg/2 Ml Sdv) 4 mg IVPUSH Q6H PRN PRN Reason: Nausea Ondansetron HCl (Ondansetron 4 Mg/2 Ml Sdv) 4 mg IVPUSH Q4H PRN PRN Reason: Nausea/Vomiting Oxycodone/Acetaminophen (Acetaminophen/Oxycodone 325-5 Mg Tab) 2 tab PO Q6H PRN PRN Reason: Pain (moderate 4-6) Oxycodone/Acetaminophen (Acetaminophen/Oxycodone 325-5 Mg Tab) 1 tab PO Q4H PRN PRN Reason: Pain (moderate 4-6) Last Admin: 08/07/20 18:46 Dose: 1 tab Documented by: Oxycodone/Acetaminophen (Acetaminophen/Oxycodone 325-5 Mg Tab) 2 tab PO Q4H PRN PRN Reason: Pain (moderate 4-6) Last Admin: 08/07/20 23:54 Dose: 2 tab Documented by: Oxytocin (Oxytocin 10 Units/1 Ml Sdv) 10 unit IM ASDIRECTED PRN PRN Reason: Excessive Vaginal Bleeding Simethicone (Simethicone 80 Mg Tab.Chew) 160 mg PO Q8H PRN PRN Reason: Gas Last Admin: 08/07/20 17:10 Dose: 160 mg Documented by: Sodium Chloride (Sodium Chloride 0.9% 10 Ml Syringe) 10 ml FLUSH ASDIRECTED PRN PRN Reason: Keep Vein Open Sodium Chloride (Sodium Chloride 0.9% 2.5 Ml Syringe) 2.5 ml FLUSH ASDIRECTED PRN PRN Reason: Keep Vein Open Sodium Chloride (Sodium Chloride 0.9% 10 Ml Sdv) 10 ml IV ASDIRECTED PRN PRN Reason: IV Use Sodium Chloride (Sodium Chloride 0.9% 10 Ml Syringe) 10 ml FLUSH ASDIRECTED PRN PRN Reason: Keep Vein Open Sodium Chloride (Sodium Chloride 0.9% 2.5 Ml Syringe) 2.5 ml FLUSH ASDIRECTED PRN PRN Reason: Keep Vein Open Sodium Chloride (Sodium Chloride 0.9% 10 Ml Sdv) 10 ml IV ASDIRECTED PRN PRN Reason: IV Use Sterile Water (Water For Irrigation,Sterile 1,000 Ml Container) 1,000 ml IRR ASDIRECTED PRN PRN Reason: delivery Terbutaline Sulfate (Terbutaline 1 Mg/Ml Sdv) 0.25 mg SUBCUT ASDIRECTED PRN PRN Reason: Tacysystole Discontinued Medications Bupivacaine HCl (Bupivacaine 0.5% 30 Ml Sdv) Confirm Administered Dose 30 ml .ROUTE .STK-MED ONE Stop: 08/05/20 07:00 Last Admin: 08/05/20 09:28 Dose: Not Given Documented by: Cefazolin Sodium (Cefazolin 1 Gm Vial) Confirm Administered Dose 2 gm .ROUTE .STK-MED ONE Stop: 08/05/20 06:39 Citric Acid/Sodium Citrate (Citric Acid/Sodium Citrate Solution 30 Ml Cup) 30 ml PO ONETIME ONE Stop: 08/05/20 06:20 Last Admin: 08/05/20 20:29 Dose: Not Given Documented by: Diphenhydramine HCl (Diphenhydramine 50 Mg/Ml Sdv) 25 mg IVPUSH Q4H PRN PRN Reason: Itching Stop: 08/06/20 07:16 Fentanyl (Fentanyl 100 Mcg/2 Ml Sdv) Confirm Administered Dose 100 mcg .ROUTE .STK-MED ONE Stop: 08/04/20 16:18 Last Admin: 08/05/20 09:26 Dose: Not Given Documented by: Fentanyl (Fentanyl 100 Mcg/2 Ml Sdv) Confirm Administered Dose 100 mcg .ROUTE .STK-MED ONE Stop: 08/05/20 01:15 Last Admin: 08/05/20 09:26 Dose: Not Given Documented by: Fentanyl (Fentanyl 100 Mcg/2 Ml Sdv) Confirm Administered Dose 100 mcg .ROUTE .STK-MED ONE Stop: 08/05/20 01:21 Last Admin: 08/05/20 09:27 Dose: Not Given Documented by: Fentanyl (Fentanyl 100 Mcg/2 Ml Sdv) Confirm Administered Dose 100 mcg .ROUTE .STK-MED ONE Stop: 08/05/20 06:26 Last Admin: 08/05/20 09:27 Dose: Not Given Documented by: Fentanyl (Fentanyl 100 Mcg/2 Ml Sdv) Confirm Administered Dose 100 mcg .ROUTE .STK-MED ONE Stop: 08/05/20 07:09 Ampicillin Sodium 2 gm/ Sodium (Chloride) 100 mls @ 200 mls/hr IV ONETIME ONE Stop: 08/03/20 21:29 Last Admin: 08/03/20 21:27 Dose: 200 mls/hr Documented by: Ampicillin Sodium 1 gm/ Sodium (Chloride) 50 mls @ 100 mls/hr IV Q4H [facility] Last Admin: 08/04/20 05:20 Dose: 100 mls/hr Documented by: Ampicillin Sodium 1 gm/ Sodium (Chloride) 50 mls @ 100 mls/hr IV Q4H [facility] Last Admin: 08/05/20 09:46 Dose: Not Given Documented by: Ropivacaine (Naropin 0.2%) Confirm Administered Dose 100 mls @ as directed .ROUTE .STK-MED ONE Stop: 08/04/20 16:18 Last Admin: 08/05/20 09:26 Dose: Not Given Documented by: Ropivacaine (Naropin 0.2%) Confirm Administered Dose 100 mls @ as directed .ROUTE .STK-MED ONE Stop: 08/05/20 01:15 Last Admin: 08/05/20 09:26 Dose: Not Given Documented by: Cefazolin Sodium/Dextrose 2 gm (/ Premix) 50 mls @ 100 mls/hr IV ONETIME ONE Stop: 08/05/20 06:48 Last Admin: 08/05/20 09:27 Dose: Not Given Documented by: Sodium Chloride (Normal Saline) Confirm Administered Dose 20 mls @ as directed .ROUTE .STK-MED ONE Stop: 08/05/20 06:39 Ketorolac Tromethamine (Ketorolac 30 Mg/Ml Sdv) Confirm Administered Dose 30 mg .ROUTE .STK-MED ONE Stop: 08/05/20 06:36 Ketorolac Tromethamine (Ketorolac 30 Mg/Ml Sdv) 30 mg IVPUSH Q6H [facility] Stop: 08/06/20 08:31 Last Admin: 08/06/20 08:44 Dose: 30 mg Documented by: Lidocaine/Epinephrine (Lidocaine 2% With Epinephrine 1:200,000 20 Ml Sdv) Confirm Administered Dose 20 ml .ROUTE .STK-MED ONE Stop: 08/05/20 06:27 Last Admin: 08/05/20 20:29 Dose: Not Given Documented by: Midazolam HCl (Midazolam 1 Mg/Ml 2 Ml Sdv) Confirm Administered Dose 2 mg .ROUTE .STK-MED ONE Stop: 08/05/20 07:42 Misoprostol (Misoprostol 200 Mcg Tab) Confirm Administered Dose 400 mcg .ROUTE .STK-MED ONE Stop: 08/05/20 07:25 Last Admin: 08/05/20 09:28 Dose: Not Given Documented by: Morphine Sulfate (Morphine Pf 10 Mg/10 Ml Sdv) Confirm Administered Dose 10 mg .ROUTE .STK-MED ONE Stop: 08/05/20 06:38 Naloxone HCl (Naloxone 0.4 Mg/Ml Syringe) 0.1 mg IVPUSH ONETIME PRN PRN Reason: Respiratory Depression Stop: 08/06/20 07:16 Ondansetron HCl (Ondansetron 4 Mg/2 Ml Sdv) Confirm Administered Dose 4 mg .ROUTE .STK-MED ONE Stop: 08/05/20 06:36 Oxytocin (Oxytocin 10 Units/1 Ml Sdv) Confirm Administered Dose 20 unit .ROUTE .STK-MED ONE Stop: 08/05/20 06:36 Phenylephrine HCl (Phenylephrine 1% 10 Mg/Ml Sdv) Confirm Administered Dose 10 mg .ROUTE .STK-MED ONE Stop: 08/05/20 06:36 Propofol (Propofol 200 Mg/20 Ml Sdv) Confirm Administered Dose 200 mg .ROUTE .STK-MED ONE Stop: 08/05/20 07:04 - Infant Interaction Infant Disposition, : to Nursery Interaction: Holding Infant, Not Applicable Infant Feeding: Difficulty with Latch-on, Other (see below) (continues to pump, but is currently formula feeding) Support Person: - Recovery Exam Fundal Tone: Firm Fundal Placement: Midline Lochia Amount: Scant, Clots/Tissue Present (yesterday, nothing today) Episiotomy/Laceration: None Bladder Status: Voiding Urinary Elimination: Voided - Exam General: Alert, Oriented Lungs: Clear to Auscultation, Normal Respiratory Effort Cardiovascular: Regular Rate, Regular Rhythm GI/Abdominal Exam: Normal Bowel Sounds, Soft, Non-Tender, No Organomegaly, No Distention, No Abnormal Bruit, No Mass, Pelvis Stable Extremities: Non-Tender Skin: Warm, Dry, Intact Wound/Incisions: Healing Well Psy/Mental Status: Alert, Normal Affect, Normal Mood - Problem List Review Problem List Initiated/Reviewed/Updated: Yes - Assessment Assessment:: 30 y/o POD#3 S/P section for failure to progress. Slept funny last night, so she's in some pain today, otherwise doing well. Able to ambulate and care for [place] while standing, there's some difficulty with sitting. Formula feeding at the moment, continues to pump breast milk. No lightheadedness or weakness. - Plan Plan:: Routine cares * Rh positive, rubella immune, GBS positive; s/p IV Ampicillin * Ambulating and voiding without difficulty * Pain controlled with PO medications, some difficulty with pain this AM * Encourage ambulation and fluid intake today * Tolerating regular diet * Formula feeding, continues to pump breast milk Anemia * Hgb 7.6 yesterday * Asymptomatic * Continue PO iron BID with meals * Passed 1 clot yesterday Dispo: stable. work on d/c today. <Marleny Trevino - Last Filed: 08/08/20 08:20> - Patient Data Vital Signs - Most Recent: Last Vital Signs Temp 97.7 F 08/07/20 23:58 Pulse 79 08/07/20 19:54 Resp 14 08/07/20 23:58 BP 130/74 08/07/20 23:58 Pulse Ox 98 08/07/20 23:58 Med Orders - Current: Current Medications Bisacodyl (Bisacodyl 10 Mg Supp) 10 mg RECTAL ONETIME PRN PRN Reason: Constipation Butorphanol Tartrate (Butorphanol 1 Mg/Ml Sdv) 1 mg IVPUSH Q1H PRN PRN Reason: Pain Carboprost Tromethamine (Carboprost Tromethamine 250 Mcg/1 Ml Amp) 250 mcg IM ASDIRECTED PRN PRN Reason: Post Hemorrhage Diphenhydramine HCl (Diphenhydramine 50 Mg/Ml Sdv) 25 mg IVPUSH Q6H PRN PRN Reason: Itching or Nausea Docusate Sodium (Docusate Sodium 100 Mg Cap) 100 mg PO BID [facility] Last Admin: 08/07/20 21:46 Dose: 100 mg Documented by: Emollient Ointment (Lanolin 100% Cream 7 Gm Tube) 0 gm TOP ASDIRECTED PRN PRN Reason: Sore Nipples Last Admin: 08/06/20 22:56 Dose: 1 gm Documented by: Fentanyl (Fentanyl 100 Mcg/2 Ml Sdv) 50 mcg IVPUSH Q1H PRN PRN Reason: Pain (severe 7-10) Ferrous Sulfate (Ferrous Sulfate 325 Mg Tab) 325 mg PO BIDMEALS [facility] Last Admin: 08/08/20 07:48 Dose: 325 mg Documented by: Oxytocin/Sodium Chloride (Oxytocin 30 Unit/500 Ml-Ns) 30 unit in 500 mls @ 999 mls/hr IV TITRATE [facility] Tranexamic Acid 1,000 mg/ (Sodium Chloride) 110 mls @ 660 mls/hr IV ONETIME PRN PRN Reason: Bleeding Lactated Ringer's (Ringers, Lactated) 1,000 mls @ 150 mls/hr IV ASDIRECTED [facility] Last Admin: 08/04/20 23:01 Dose: 150 mls/hr Documented by: Oxytocin/Sodium Chloride (Oxytocin 30 Unit/500 Ml-Ns) 30 unit in 500 mls @ 2 mls/hr IV TITRATE [facility]; Protocol Last Titration: 08/05/20 05:59 Dose: 0 munits/min, 0 mls/hr Documented by: Lactated Ringer's (Ringers, Lactated) 1,000 mls @ 500 mls/hr IV BOLUS [facility] Oxytocin/Sodium Chloride (Oxytocin 30 Unit/500 Ml-Ns) 30 unit in 500 mls @ 250 mls/hr IV TITRATE [facility] Lactated Ringer's (Ringers, Lactated) 1,000 mls @ 125 mls/hr IV ASDIRECTED [facility] Last Admin: 08/05/20 19:33 Dose: 125 mls/hr Documented by: Oxytocin/Lactated Ringer's (Pitocin In Lr 30 Units/500 Ml) 30 unit in 500 mls @ 999 mls/hr IV TITRATE [facility]; Protocol Tranexamic Acid 1,000 mg/ (Sodium Chloride) 110 mls @ 660 mls/hr IV ONETIME PRN PRN Reason: Bleeding Ibuprofen (Ibuprofen 800 Mg Tab) 800 mg PO Q8H PRN PRN Reason: mild pain or fever Last Admin: 08/08/20 07:48 Dose: 800 mg Documented by: Lidocaine HCl (Lidocaine 1% 50 Ml Mdv) 50 ml INJECT ONETIME PRN PRN Reason: Laceration repair Methylergonovine Maleate (Methylergonovine 0.2 Mg/1 Ml Amp) 0.2 mg IM ASDIRECTED PRN PRN Reason: Post Hemorrhage Methylergonovine Maleate (Methylergonovine 0.2 Mg/1 Ml Amp) 0.2 mg IM ONETIME PRN PRN Reason: Excessive Vaginal Bleeding Misoprostol (Misoprostol 200 Mcg Tab) 200 mcg PO ONETIME PRN PRN Reason: Post Hemorrhage Misoprostol (Misoprostol 25 Mcg (1/4 Of 100 Mcg) Tab) 25 mcg VAG Q4H PRN PRN Reason: Cervical Ripening Last Admin: 08/04/20 05:20 Dose: 25 mcg Documented by: Misoprostol (Misoprostol 200 Mcg Tab) 1,000 mcg RECTAL ONETIME PRN PRN Reason: excessive bleeding Nalbuphine HCl (Nalbuphine 10 Mg/1 Ml Vial) 10 mg IVPUSH Q1H PRN PRN Reason: Pain (severe 7-10) Nalbuphine HCl (Nalbuphine 10 Mg/1 Ml Vial) 5 mg IVPUSH ASDIRECTED PRN PRN Reason: Itching Last Admin: 08/05/20 19:42 Dose: 5 mg Documented by: Ondansetron HCl (Ondansetron 4 Mg/2 Ml Sdv) 4 mg IVPUSH Q6H PRN PRN Reason: Nausea/Vomiting Ondansetron HCl (Ondansetron 4 Mg/2 Ml Sdv) 4 mg IVPUSH Q6H PRN PRN Reason: Nausea Ondansetron HCl (Ondansetron 4 Mg/2 Ml Sdv) 4 mg IVPUSH Q4H PRN PRN Reason: Nausea/Vomiting Oxycodone/Acetaminophen (Acetaminophen/Oxycodone 325-5 Mg Tab) 2 tab PO Q6H PRN PRN Reason: Pain (moderate 4-6) Oxycodone/Acetaminophen (Acetaminophen/Oxycodone 325-5 Mg Tab) 1 tab PO Q4H PRN PRN Reason: Pain (moderate 4-6) Last Admin: 08/08/20 07:48 Dose: 1 tab Documented by: Oxycodone/Acetaminophen (Acetaminophen/Oxycodone 325-5 Mg Tab) 2 tab PO Q4H PRN PRN Reason: Pain (moderate 4-6) Last Admin: 08/07/20 23:54 Dose: 2 tab Documented by: Oxytocin (Oxytocin 10 Units/1 Ml Sdv) 10 unit IM ASDIRECTED PRN PRN Reason: Excessive Vaginal Bleeding Simethicone (Simethicone 80 Mg Tab.Chew) 160 mg PO Q8H PRN PRN Reason: Gas Last Admin: 08/07/20 17:10 Dose: 160 mg Documented by: Sodium Chloride (Sodium Chloride 0.9% 10 Ml Syringe) 10 ml FLUSH ASDIRECTED PRN PRN Reason: Keep Vein Open Sodium Chloride (Sodium Chloride 0.9% 2.5 Ml Syringe) 2.5 ml FLUSH ASDIRECTED PRN PRN Reason: Keep Vein Open Sodium Chloride (Sodium Chloride 0.9% 10 Ml Sdv) 10 ml IV ASDIRECTED PRN PRN Reason: IV Use Sodium Chloride (Sodium Chloride 0.9% 10 Ml Syringe) 10 ml FLUSH ASDIRECTED PRN PRN Reason: Keep Vein Open Sodium Chloride (Sodium Chloride 0.9% 2.5 Ml Syringe) 2.5 ml FLUSH ASDIRECTED PRN PRN Reason: Keep Vein Open Sodium Chloride (Sodium Chloride 0.9% 10 Ml Sdv) 10 ml IV ASDIRECTED PRN PRN Reason: IV Use Sterile Water (Water For Irrigation,Sterile 1,000 Ml Container) 1,000 ml IRR ASDIRECTED PRN PRN Reason: delivery Terbutaline Sulfate (Terbutaline 1 Mg/Ml Sdv) 0.25 mg SUBCUT ASDIRECTED PRN PRN Reason: Tacysystole Discontinued Medications Bupivacaine HCl (Bupivacaine 0.5% 30 Ml Sdv) Confirm Administered Dose 30 ml .ROUTE .STK-MED ONE Stop: 08/05/20 07:00 Last Admin: 08/05/20 09:28 Dose: Not Given Documented by: Cefazolin Sodium (Cefazolin 1 Gm Vial) Confirm Administered Dose 2 gm .ROUTE .STK-MED ONE Stop: 08/05/20 06:39 Citric Acid/Sodium Citrate (Citric Acid/Sodium Citrate Solution 30 Ml Cup) 30 ml PO ONETIME ONE Stop: 08/05/20 06:20 Last Admin: 08/05/20 20:29 Dose: Not Given Documented by: Diphenhydramine HCl (Diphenhydramine 50 Mg/Ml Sdv) 25 mg IVPUSH Q4H PRN PRN Reason: Itching Stop: 08/06/20 07:16 Fentanyl (Fentanyl 100 Mcg/2 Ml Sdv) Confirm Administered Dose 100 mcg .ROUTE .STK-MED ONE Stop: 08/04/20 16:18 Last Admin: 08/05/20 09:26 Dose: Not Given Documented by: Fentanyl (Fentanyl 100 Mcg/2 Ml Sdv) Confirm Administered Dose 100 mcg .ROUTE .STK-MED ONE Stop: 08/05/20 01:15 Last Admin: 08/05/20 09:26 Dose: Not Given Documented by: Fentanyl (Fentanyl 100 Mcg/2 Ml Sdv) Confirm Administered Dose 100 mcg .ROUTE .STK-MED ONE Stop: 08/05/20 01:21 Last Admin: 08/05/20 09:27 Dose: Not Given Documented by: Fentanyl (Fentanyl 100 Mcg/2 Ml Sdv) Confirm Administered Dose 100 mcg .ROUTE .STK-MED ONE Stop: 08/05/20 06:26 Last Admin: 08/05/20 09:27 Dose: Not Given Documented by: Fentanyl (Fentanyl 100 Mcg/2 Ml Sdv) Confirm Administered Dose 100 mcg .ROUTE .STK-MED ONE Stop: 08/05/20 07:09 Ampicillin Sodium 2 gm/ Sodium (Chloride) 100 mls @ 200 mls/hr IV ONETIME ONE Stop: 08/03/20 21:29 Last Admin: 08/03/20 21:27 Dose: 200 mls/hr Documented by: Ampicillin Sodium 1 gm/ Sodium (Chloride) 50 mls @ 100 mls/hr IV Q4H [facility] Last Admin: 08/04/20 05:20 Dose: 100 mls/hr Documented by: Ampicillin Sodium 1 gm/ Sodium (Chloride) 50 mls @ 100 mls/hr IV Q4H [facility] Last Admin: 08/05/20 09:46 Dose: Not Given Documented by: Ropivacaine (Naropin 0.2%) Confirm Administered Dose 100 mls @ as directed .ROUTE .STK-MED ONE Stop: 08/04/20 16:18 Last Admin: 08/05/20 09:26 Dose: Not Given Documented by: Ropivacaine (Naropin 0.2%) Confirm Administered Dose 100 mls @ as directed .ROUTE .STK-MED ONE Stop: 08/05/20 01:15 Last Admin: 08/05/20 09:26 Dose: Not Given Documented by: Cefazolin Sodium/Dextrose 2 gm (/ Premix) 50 mls @ 100 mls/hr IV ONETIME ONE Stop: 08/05/20 06:48 Last Admin: 08/05/20 09:27 Dose: Not Given Documented by: Sodium Chloride (Normal Saline) Confirm Administered Dose 20 mls @ as directed .ROUTE .STK-MED ONE Stop: 08/05/20 06:39 Ketorolac Tromethamine (Ketorolac 30 Mg/Ml Sdv) Confirm Administered Dose 30 mg .ROUTE .STK-MED ONE Stop: 08/05/20 06:36 Ketorolac Tromethamine (Ketorolac 30 Mg/Ml Sdv) 30 mg IVPUSH Q6H [facility] Stop: 08/06/20 08:31 Last Admin: 08/06/20 08:44 Dose: 30 mg Documented by: Lidocaine/Epinephrine (Lidocaine 2% With Epinephrine 1:200,000 20 Ml Sdv) Confirm Administered Dose 20 ml .ROUTE .STK-MED ONE Stop: 08/05/20 06:27 Last Admin: 08/05/20 20:29 Dose: Not Given Documented by: Midazolam HCl (Midazolam 1 Mg/Ml 2 Ml Sdv) Confirm Administered Dose 2 mg .ROUTE .STK-MED ONE Stop: 08/05/20 07:42 Misoprostol (Misoprostol 200 Mcg Tab) Confirm Administered Dose 400 mcg .ROUTE .STK-MED ONE Stop: 08/05/20 07:25 Last Admin: 08/05/20 09:28 Dose: Not Given Documented by: Morphine Sulfate (Morphine Pf 10 Mg/10 Ml Sdv) Confirm Administered Dose 10 mg .ROUTE .STK-MED ONE Stop: 08/05/20 06:38 Naloxone HCl (Naloxone 0.4 Mg/Ml Syringe) 0.1 mg IVPUSH ONETIME PRN PRN Reason: Respiratory Depression Stop: 08/06/20 07:16 Ondansetron HCl (Ondansetron 4 Mg/2 Ml Sdv) Confirm Administered Dose 4 mg .ROUTE .STK-MED ONE Stop: 08/05/20 06:36 Oxytocin (Oxytocin 10 Units/1 Ml Sdv) Confirm Administered Dose 20 unit .ROUTE .STK-MED ONE Stop: 08/05/20 06:36 Phenylephrine HCl (Phenylephrine 1% 10 Mg/Ml Sdv) Confirm Administered Dose 10 mg .ROUTE .STK-MED ONE Stop: 08/05/20 06:36 Propofol (Propofol 200 Mg/20 Ml Sdv) Confirm Administered Dose 200 mg .ROUTE .STK-MED ONE Stop: 08/05/20 07:04 - Plan Plan:: Continues to meet postoperative milestones. Pain better controlled yesterday and overnight. Patient up to shower yesterday with no difficulty. Lochia scant. Ambulating and voiding without difficulty. Tolerating regular diet well. Reviewed discharge instructions including to notify clinic with fever/chills, intractable nausea/vomiting, pain not controlled by PO medications or heavy vaginal bleeding. Patient declines hormonal contraception at this time. Plans to use condoms when cleared by appointment. Advised NPV x 6 weeks. Anticipate discharge today pending patient status.
[2020-08-08] MEDS: Ferrous Sulfate 325 MG Tab PO SCH (07:48)
[2020-08-08] MEDS: Acetaminophen/oxyCODONE 325-5 MG Tab PO PRN ×2 (07:48→12:04)
[2020-08-08] MEDS: Simethicone 80 MG Tab.Chew PO PRN (08:51)
[2020-08-08] MEDS: Docusate Sodium 100 MG Cap PO SCH (08:51)
== END 2020-08-08 12:55 | disposition home or self-care (01) | DRG 540 ==
LOC: MW.OB 18:52 → OBSVTOIN 08-05 08:17 → MW.OB 08-05 10:30
PROVIDERS: ADMIT Obstetrics & Gynecology; ATTEND Obstetrics & Gynecology
PROC: 10D00Z1 Extraction of Products of Conception, Low, Open Approach (ICD-10-PCS; principal; 2020-08-05)
PROC: 3E0P7VZ Introduction of Hormone into Female Reproductive, Via Natural or Artificial Opening (ICD-10-PCS; 2020-08-05)
PROC: 3E033VJ Introduction of Other Hormone into Peripheral Vein, Percutaneous Approach (ICD-10-PCS; 2020-08-05)
PROC: 10H07YZ Insertion of Other Device into Products of Conception, Via Natural or Artificial Opening (ICD-10-PCS; 2020-08-05)
PROC: 3E0R3BZ Introduction of Anesthetic Agent into Spinal Canal, Percutaneous Approach (ICD-10-PCS; 2020-08-05)
PROC: 00HU33Z Insertion of Infusion Device into Spinal Canal, Percutaneous Approach (ICD-10-PCS; 2020-08-05)
DX: O99.214 Obesity complicating childbirth (principal); E66.9 Obesity, unspecified; O99.824 Streptococcus B carrier state complicating childbirth; O69.81X0 Labor and delivery complicated by cord around neck, without compression, not applicable or unspecified; O62.2 Other uterine inertia; Z20.822 Contact with and (suspected) exposure to COVID-19; O90.81 Anemia of the puerperium; Z88.8 Allergy status to other drugs, medicaments and biological substances; D62 Acute posthemorrhagic anemia; Z37.0 Single live birth; Z3A.40 40 weeks gestation of pregnancy
CPT/HCPCS: 01967; 01968; 36415; 51702; 59025; 85014; 85018; 85027; 86592; 86850; 86900; 86901; 88307; A9270-GY; J0290; J0690; J1885; J2250; J2270; J2300; J2370; J2405; J2590; J2704; J2795; J3010; J3490; J7120; U0002

== ENCOUNTER 2022-05-30 05:17 | Inpatient (IN) | payer BC ==
[2022-05-30] MEDS: Lactated Ringers 1,000 ML IV SCH ×2 (05:45→06:57)
[2022-05-30] MEDS ORDERED: Citric Acid/Sodium Citrate Solution 30 ML Cup PO ONE (06:27)
[2022-05-30] MEDS ORDERED: Sodium Chloride 0.9% 2.5 ML Syringe FLUSH PRN (06:27)
[2022-05-30] MEDS ORDERED: Sodium Chloride 0.9% 10 ML Syringe FLUSH PRN (06:27)
[2022-05-30] MEDS ORDERED: Sodium Chloride 0.9% 20 ML SDV IV PRN (06:27)
[2022-05-30] MEDS ORDERED: Oxytocin/0.9 % Sodium Chloride 30 UNIT/500 ML BAG IV SCH (06:30)
[2022-05-30] MEDS ORDERED: ceFAZolin 2 GM in Sodium Chloride 0.9% 50 ML IV ONE (06:31)
[2022-05-30] MEDS ORDERED: Phenylephrine 1% 10 MG/ML SDV ONE ×2 (07:08→08:43)
[2022-05-30] MEDS ORDERED: ceFAZolin 1 GM Vial ONE (07:08)
[2022-05-30] MEDS ORDERED: Ondansetron 4 MG/2 ML SDV ONE ×2 (07:08→08:36)
[2022-05-30] MEDS ORDERED: Lidocaine 2% 5 ML SDV ONE (07:08)
[2022-05-30] MEDS ORDERED: Ketorolac 30 MG/ML SDV ONE (07:08)
[2022-05-30] MEDS ORDERED: Dexamethasone 4 MG/ML 5 ML MDV ONE (07:08)
[2022-05-30] MEDS ORDERED: Morphine PF 10 MG/10 ML SDV ONE (07:09)
[2022-05-30] MEDS ORDERED: Oxytocin 10 Units/1 ML SDV ONE ×2 (07:09→08:23)
[2022-05-30] MEDS ORDERED: Ropivacaine 0.5% 5 MG/ML 30 ML SDV ONE (07:09)
[2022-05-30] MEDS ORDERED: fentaNYL 100 MCG/2 ML SDV ONE (07:09)
[2022-05-30] MEDS ORDERED: ePHEDrine 50 MG/ML SDV IVPUSH PRN (07:33)
[2022-05-30] MEDS ORDERED: Metoclopramide 10 MG/2 ML SDV IVPUSH PRN (07:33)
[2022-05-30] MEDS ORDERED: Naloxone 0.4 MG/ML SDV IVPUSH PRN (07:33)
[2022-05-30] MEDS ORDERED: Albuterol 0.083% 2.5 MG/3 ML Neb Soln NEB PRN (07:33)
[2022-05-30] MEDS ORDERED: Ondansetron 4 MG/2 ML SDV IVPUSH PRN ×3 (07:33→09:28)
[2022-05-30] MEDS ORDERED: HYDROmorphone 2 MG/ML Syringe IVPUSH PRN (07:33)
[2022-05-30] MEDS ORDERED: diphenhydrAMINE 50 MG/ML SDV IVPUSH PRN ×2 (07:33→09:28)
[2022-05-30] MEDS ORDERED: Acetaminophen/oxyCODONE 325-5 MG Tab PO PRN ×2 (07:33→09:28)
[2022-05-30] MEDS ORDERED: fentaNYL 100 MCG/2 ML SDV IVPUSH PRN ×2 (07:33)
[2022-05-30] MEDS ORDERED: Morphine 2 MG/ML SYRINGE IVPUSH PRN (07:33)
[2022-05-30] MEDS ORDERED: Phenylephrine HCl In 0.9% NaCl 1 MG/10 ML Vial IVPUSH SCH (07:45)
[2022-05-30] MEDS ORDERED: Water For Injection, Sterile 20 ML ONE (08:30)
[2022-05-30] MEDS ORDERED: Dexmedetomidine 200 MCG/2 ML SDV ONE (08:30)
[2022-05-30] MEDS ORDERED: Bisacodyl 10 MG Supp RECTAL PRN (09:28)
[2022-05-30] MEDS ORDERED: Lanolin 100% Cream 7 GM Tube TOP PRN (09:28)
[2022-05-30] MEDS ORDERED: Tranexamic Acid 1,000 MG in Sodium Chloride 0.9% 100 ML IV PRN (09:28)
[2022-05-30] MEDS ORDERED: Misoprostol 200 MCG Tab RECTAL PRN (09:28)
[2022-05-30] MEDS ORDERED: Methylergonovine 0.2 MG/1 ML Amp IM PRN (09:28)
[2022-05-30] MEDS: Ketorolac 30 MG/ML SDV IVPUSH SCH ×3 (09:30→21:26)
[2022-05-30] MEDS ORDERED: Lactated Ringers 1,000 ML IV SCH (09:30)
[2022-05-30] MEDS: Docusate Sodium 100 MG Cap PO SCH (21:25)
[2022-05-31] MEDS: Ketorolac 30 MG/ML SDV IVPUSH SCH ×2 (03:18→09:36)
[2022-05-31] MEDS: Docusate Sodium 100 MG Cap PO SCH ×2 (09:36→21:17)
[2022-05-31] MEDS: Ibuprofen 800 MG Tab PO PRN (16:39)
[2022-05-31] MEDS: Acetaminophen/oxyCODONE 325-5 MG Tab PO PRN (21:20)
[2022-06-01] MEDS: Ibuprofen 800 MG Tab PO PRN ×2 (00:21→08:09)
[2022-06-01] MEDS: Acetaminophen/oxyCODONE 325-5 MG Tab PO PRN (04:19)
[2022-06-01] MEDS: Docusate Sodium 100 MG Cap PO SCH (08:10)
== END 2022-06-01 12:50 | disposition home or self-care (01) | DRG 540 ==
LOC: MW.OB 05:17
PROVIDERS: ADMIT Obstetrics & Gynecology; ATTEND Obstetrics & Gynecology
PROC: 10D00Z1 Extraction of Products of Conception, Low, Open Approach (ICD-10-PCS; principal; 2022-05-30)
DX: O34.211 Maternal care for low transverse scar from previous cesarean delivery (principal); Z3A.39 39 weeks gestation of pregnancy; Z37.0 Single live birth; O99.214 Obesity complicating childbirth; Z20.822 Contact with and (suspected) exposure to COVID-19
CPT/HCPCS: 36415; 59025; 85027; 86592; 86850; 86900; 86901; A9270-GY; J0690; J1100; J1790; J1885; J2274; J2370; J2405; J2590; J2795; J3010; J3490; J7120; U0002